=== PATIENT | male | born 1930 | race Caucasian/White ===

== ENCOUNTER 2016-09-27 | Outpatient (CLI) | payer MEDICARE, BC | END 2016-09-27 04:06 | disposition critical access hospital (66) | CPT/HCPCS: A0425; A0427 ==

== ENCOUNTER 2016-09-27 04:19 | Emergency (ER) | payer MEDICARE, BC ==
[2016-09-27] MEDS ORDERED: DEXTROSE GEL 37.5 GM TUBE PO ONE ×2 (04:24→04:26)
[2016-09-27] MEDS ORDERED: DEXTROSE 50% ABBOJECT 25 GM/50 ML SYRINGE ONE ×2 (04:30→06:10)
[2016-09-27] MEDS ORDERED: DEXTROSE 50% ABBOJECT 25 GM/50 ML SYRINGE IVP STA ×2 (04:32→06:06)
== END 2016-09-27 07:48 | disposition home or self-care (01) ==
DX: E11.649 Type 2 diabetes mellitus with hypoglycemia without coma (principal); Z79.4 Long term (current) use of insulin; I10 Essential (primary) hypertension; E78.00 Pure hypercholesterolemia, unspecified; Z86.73 Personal history of transient ischemic attack (TIA), and cerebral infarction without residual deficits; K21.9 Gastro-esophageal reflux disease without esophagitis; M19.90 Unspecified osteoarthritis, unspecified site; Z79.82 Long term (current) use of aspirin; F17.200 Nicotine dependence, unspecified, uncomplicated

== ENCOUNTER 2016-10-07 15:12 | Outpatient (CLI) | payer MEDICARE, BC | END 2016-10-07 15:13 | disposition home or self-care (01) | DX: R53.83 Other fatigue (principal); I10 Essential (primary) hypertension; E11.9 Type 2 diabetes mellitus without complications; N28.9 Disorder of kidney and ureter, unspecified ==

== ENCOUNTER 2017-02-03 12:24 | Outpatient (CLI) | payer MEDICARE, BC ==
[2017-02-03 19:26] LABS: CALCIUM 8.8 mg/dL (8.5-10.3); CREATININE 1.7 mg/dL (0.6-1.2); POTASSIUM 4.7 mmol/L (3.5-5.0)
[2017-02-03 20:00] LABS: HEMOGLOBIN A1C 1.14 g/dL
== END 2017-02-03 12:25 | disposition home or self-care (01) ==
LOC: LAB.WCP 12:24
PROVIDERS: ATTEND Family Medicine
DX: N28.9 Disorder of kidney and ureter, unspecified (principal); E11.9 Type 2 diabetes mellitus without complications
CPT/HCPCS: 36415; 80048; 83036

== ENCOUNTER 2017-05-19 12:59 | Outpatient (CLI) | payer MEDICARE, BC | END 2017-05-19 13:00 | disposition critical access hospital (66) | LOC: EMS 12:59 | PROVIDERS: ATTEND Surgery | DX: R41.82 Altered mental status, unspecified (principal) | CPT/HCPCS: A0425; A0429 ==

== ENCOUNTER 2017-05-19 13:13 | Observation (INO) | payer MEDICARE, BC ==
--- NOTE | 2017-05-19 13:39 | ED Physician Documentation ---
PD HPI FOCAL NEURO - Stated complaint Stated Complaint: ALOC - Chief complaint Chief Complaint: Neuro - History obtained from History obtained from: Patient, EMS - History of Present Illness Timing - onset: Other (86-year-old gentleman presents by ambulance for acute confusion, reportedly for the last 2 hours, although I am not sure how reliable this is. He initially complains of left shoulder pain when I ask him why he is here, he says that has been going on for weeks and had a negative x-ray. His difficulty with range of motion there. He denies any headache, when I specifically asked him if he feels confused he does say yes. Blood sugar on route was in the 100s. The is not immediately available for historical confirmation of the time of onset on arrival, I tried calling the home phone number and there was no answer.) - Additional information Additional information: Family did arrive shortly after the patient's arrival while he was in [place] and confirmed that at the very least he was confused at 5 AM this morning, so he is not a TPA candidate if this is a stroke. Review of Systems Unable to obtain: Confused Constitutional: denies: Fever, Chills Cardiac: denies: Chest pain / pressure, Palpitations Respiratory: denies: Dyspnea, Cough PD PAST MEDICAL HISTORY - Past Medical History Cardiovascular: Hypertension, High cholesterol Neuro: TIA Endocrine/Autoimmune: Type 2 diabetes GI: GERD Psych: None Musculoskeletal: Osteoarthritis, Chronic back pain - Past Surgical History Past Surgical History: Yes Ortho: Other HEENT: Cataracts - Present Medications Home Medications: Ambulatory Orders Medication Instructions Recorded Confirmed Aspirin [Aspir 81] 81 mg PO DAILY 02/14/15 09/27/16 Cholecalciferol (Vitamin D3) 2,000 unit PO DAILY 02/14/15 09/27/16 [Vitamin D-3] Esomeprazole Magnesium [Nexium 22.3 mg PO DAILY 02/14/15 09/27/16 24Hr] Ferrous Sulfate 325 mg PO BID 02/14/15 09/27/16 Sertraline HCl 50 mg PO QDBREAKFAST 02/14/15 09/27/16 Insulin Degludec [Tresiba 100 unit SQ 09/27/16 Flextouch U-100] Rosuvastatin Calcium [Crestor] 09/27/16 - Allergies Allergies/Adverse Reactions: Allergies Allergy/AdvReac Type Severity Reaction Status Date / Time Penicillins Allergy Mild Rash Verified 09/27/16 04:42 celecoxib [From Celebrex] Allergy Hives Verified 09/27/16 04:42 - Social History Does the pt smoke?: Yes Smoking Status: Light tobacco smoker Does the pt drink ETOH?: No Does the pt have substance abuse?: No - Immunizations Immunizations are current?: Yes - POLST Patient has POLST: No PD ED PE NORMAL - Vitals Vital signs reviewed: Yes - General General: Other (He is alert and cooperative, he is correct on the month and Year but not the date. He is able to state his name, and his address. When asked him how old he is he says he is 87, he is 86 though.) - HEENT HEENT: PERRL, EOMI - Neck Neck: Supple, no meningeal sign, No bony TTP - Cardiac Cardiac: RRR, No murmur - Respiratory Respiratory: No respiratory distress, Clear bilaterally - Abdomen Abdomen: Soft, Non tender - Derm Derm: Normal color, Warm and dry - Extremities Extremities: No edema, No calf tenderness / cord - Neuro Neuro: Other (He is unable to range the left shoulder due to shoulder pain, but has normal senior officer strength on the left,) - Psych Psych: Normal mood, Normal affect NIHSS - Time Time: 13:32 - Level of Consciousness Level of consciousness: (0) Alert, Keenly responsive LOC Questions: (0) Answers both Q's correct LOC Commands: (0) Performs both correctly - Gaze Best Gaze: (0) Normal - Visual Visual: (0) No loss - Facial Palsy Facial Palsy: (1) Minor paralysis (Right side) - Motor Arms (both separate) Motor Arm (right): (1) Drift (Very mild pronation of the right upper extremity) Motor Arm (left): (0) No drift (He actually cannot lift his arm off the bed because of shoulder pain but has normal senior officer strength on the left) - Motor Legs (both separate) Motor Leg (right): (1) Drift Motor Leg (left): (0) No drift - Limb Ataxia Limb Ataxia: (0) Absent - Sensory Sensory: (0) Normal - Best Language Best Language: (0) No aphasia - Dysarthria Dysarthria: (0) Normal - Extinction and Inattention (formally neg Extinction and inattention: (0) No abnormality - Total Score/Results Total Score/Result: 3 Results - Vitals Vitals: Vital Signs - 24 hr 05/19/17 13:21 Temperature 36.1 C L Heart Rate 87 Respiratory 16 Rate Blood Pressure 96/65 O2 Saturation 97 Oxygen O2 Source [] Room air O2 Source [] Room air O2 Source Room air - EKG (time done) 1415 Rate: Rate (enter#) (74) Rhythm: NSR [place]: Normal Intervals: Normal MO QRS: Normal Ischemia: Q waves (Anterior/inferior) Computer interpretation: Agree with computer - Labs Labs: Laboratory Tests 05/19/17 05/19/17 05/19/17 14:10 14:10 14:10 WBC 10.6 RBC 5.08 Hgb 15.2 Hct 45.1 MCV 88.8 MCH 29.8 MCHC 33.6 RDW 13.8 Plt Count 211 MPV 9.8 Neut # 6.2 Lymph # 2.9 Simpson # 0.6 Eos # 0.7 Baso # 0.1 Absolute Nucleated RBC 0.01 Nucleated RBC % 0.1 PT 11.4 INR 1.0 Sodium 135 Potassium 4.3 Chloride 98 L Carbon Dioxide 29 Anion Gap 8.0 BUN 22 H Creatinine 1.7 H Estimated GFR (MDRD) 38 L Glucose 140 H Calcium 9.1 Total Bilirubin 0.5 AST 19 ALT 13 Alkaline Phosphatase 101 Total Protein 6.8 Albumin 3.7 Globulin 3.1 Albumin/Globulin Ratio 1.2 Lipase 19 L - Rads (name of study) CT Head Radiology: EMP read contemporaneously (Atrophy without acute disease) PD MEDICAL DECISION MAKING - ED course ED course: On repeat examination after his CAT scan, he became much more alert and oriented and cogent, remember falling this morning and was now complaining of neck pain he does have mild high cervical spine tenderness, the pronator drift in the right arm and facial droop have disappeared. As such this is consistent with a TIA. I spoke with Dr. Camacho the hospitalist for admission at approximately 3:30 PM and she deferred to the nurse practitioner and I spoke with him, nurse dequan Barry, at about 4 PM. Departure - Departure Disposition: ED Place in Observation Clinical Impression: TIA (transient ischemic attack) Qualifiers: Transient cerebral ischemia type: unspecified Qualified Code(s): G45.9 - Transient cerebral ischemic attack, unspecified Fall Qualifiers: Encounter type: initial encounter Qualified Code(s): W19.XXXA - Unspecified fall, initial encounter Neck strain Qualifiers: Encounter type: initial encounter Qualified Code(s): S16.1XXA - Strain of muscle, fascia and tendon at neck level, initial encounter Condition: Stable
--- NOTE | 2017-05-19 14:15 | CT Preliminary Report ---
Exam: CT HEAD W/O STROKE PROTOCOL IMPRESSION: Generalized age-related cortical atrophic changes without evidence of acute intracranial abnormality. [facility] The call report notification system was initiated by Dr. Danette Rosales at 14:08 hrs on 05/19/17. The above findings were discussed with Dr Oseguera by Dr. Danette Rosales at 14:13 hrs on 05/19/17. SITE ID: [id number]
--- NOTE | 2017-05-19 14:20 | CT Report ---
EXAM: CT HEAD EXAM DATE: 05/19/2017 01:58 PM. CLINICAL HISTORY: Confusion. COMPARISON: 02/01/2016. TECHNIQUE: Multiaxial CT images were obtained from the foramen magnum to the vertex. IV contrast: Non e. Reformats: Coronal. In accordance with CT protocol optimization, one or more of the following dose reduction techniques w ere utilized for this exam: automated exposure control, adjustment of mA and/or KV based on patient s ize, or use of iterative reconstructive technique. FINDINGS: Parenchyma: No intraparenchymal hemorrhage. No evidence of mass, midline shift, or CT findings of acu te infarction. Decker-white differentiation is distinct. Extraaxial Spaces: Normal for age. No subdural or epidural collections identified. Ventricles: The ventricles and cortical sulci are enlarged, consistent with age-related tissue loss. Sinuses: Imaged paranasal sinuses, orbits, and mastoids show no significant abnormality. Bones: No evidence of fracture or calvarial defect. Other: Diffuse chronic microangiopathic white matter changes are evident. IMPRESSION: Generalized age-related cortical atrophic changes without evidence of acute intracranial abnormality. RAD[facility] The call report notification system was initiated by Dr. Danette Rosales at 14:08 hrs on 05/19/17. The above findings were discussed with Dr Hang Oseguera by Dr. Danette Rosales at 14:13 hrs on . Referring Provider Line: [phone] SITE ID: [id number]
[2017-05-19 14:36] LABS: BASOPHILS # (AUTO) 0.1 10^3/uL (0.0-0.1); BASOPHILS % (AUTO) 1.4 %; EOSINOPHILS # (AUTO) 0.7 10^3/uL (0.0-0.7); EOSINOPHILS % (AUTO) 6.3 %; HCT - HEMATOCRIT 45.1 % (42.0-52.0); HGB - HEMOGLOBIN 15.2 g/dL (14.0-18.0); LYMPHOCYTES # (AUTO) 2.9 10^3/uL (1.5-3.5); LYMPHOCYTES % (AUTO) 27.7 %; MEAN CORPUSCULAR HEMOGLOBIN 29.8 pg (27.0-31.0); MEAN CORPUSCULAR HGB CONC 33.6 g/dL (32.0-36.0); MEAN CORPUSCULAR VOLUME 88.8 fL (80.0-94.0); MEAN PLATELET VOLUME 9.8 fL (7.4-11.4); MONOCYTES # (AUTO) 0.6 10^3/uL (0.0-1.0); MONOCYTES % (AUTO) 5.9 %; NEUTROPHILS # (AUTO) 6.2 10^3/uL (1.5-6.6); NEUTROPHILS % (AUTO) 58.7 %; NUCLEATED RED BLOOD CELLS AUTO 0.1 /100WBC; RED BLOOD COUNT 5.08 10^6/uL (4.70-6.10); RED CELL DISTRIBUTION WIDTH 13.8 % (12.0-15.0); UNCORRECTED WHITE BLOOD COUNT 10.6 x10^3/uL; WHITE BLOOD COUNT 10.6 x10^3/uL (4.8-10.8)
[2017-05-19 14:45] LABS: PT - PROTHROMBIN TIME 11.4 secs (9.9-12.6)
[2017-05-19 14:52] LABS: ALBUMIN/GLOBULIN RATIO 1.2 (1.0-2.2); BILIRUBIN,TOTAL 0.5 mg/dL (0.2-1.0); CALCIUM 9.1 mg/dL (8.5-10.3); CREATININE 1.7 mg/dL (0.6-1.2); POTASSIUM 4.3 mmol/L (3.5-5.0); TOTAL PROTEIN 6.8 g/dL (6.7-8.2)
[2017-05-19] MEDS ORDERED: ASPIRIN CHEW 81 MG TABLET PO STA (14:52)
[2017-05-19] MEDS ORDERED: ASPIRIN CHEW 81 MG TABLET ONE (14:59)
[2017-05-19] MEDS ORDERED: SODIUM CHLORIDE FLUSH 0.9% 10 ML SYRINGE IVP PRN (16:43)
[2017-05-19] MEDS ORDERED: ONDANSETRON 4 MG/2 ML VIAL IVP PRN (16:43)
[2017-05-19] MEDS ORDERED: ACETAMINOPHEN 325 MG TABLET PO PRN (16:43)
--- NOTE | 2017-05-19 16:51 | CT Preliminary Report ---
Exam: CT CERVICAL SPINE W/O IMPRESSION: 1. No acute cervical spine fracture or listhesis. 2. Degenerative disk disease, as above. [facility] SITE ID: [id number]
--- NOTE | 2017-05-19 16:54 | CT Report ---
EXAM: CT CERVICAL SPINE WITHOUT CONTRAST DATE: 05/19/2017 04:07 PM HISTORY: Neck pain fall. COMPARISONS: None. TECHNIQUE: Thin-section axial images were acquired of the cervical spine without contrast. Post-proce ssing: Coronal and sagittal reformats. Other: None. In accordance with CT protocol optimization, one or more of the following dose reduction techniques w ere utilized for this exam: automated exposure control, adjustment of mA and/or KV based on patient s ize, or use of iterative reconstructive technique. FINDINGS: Alignment: Normal. No scoliosis or spondylolisthesis. Bones: No fracture or bone lesion. Interspace Levels/Facets: C1-C2: Unremarkable. C2-C3: Unremarkable. C3-C4: Unremarkable. C4-C5: Unremarkable. C5-C6: Moderate degenerative disk disease. C6-C7: Moderate degenerative disk disease. C7-T1: Moderate degenerative disk disease. Musculature: Normal. No fatty atrophy. Other: The paravertebral and prevertebral soft tissues are normal. The lung apices are clear. IMPRESSION: 1. No acute cervical spine fracture or listhesis. 2. Degenerative disk disease, as above. [facility] Referring Provider Line: [phone] SITE ID: [id number]
[2017-05-19 17:26] LABS: HEMOGLOBIN A1C 1.28 g/dL
--- NOTE | 2017-05-19 17:59 | HISTORY & PHYSICAL EXAMINATION ---
Chief Complaint - Chief Complaint Chief Complaint: TIA History of Present Illness - Admitted From Admitted From:: ER - History Obtained From History obtained from: pt - History of Present Illness HPI Comment/Other: This is a 86-year-old male with a past medical history significance for TIA two years ago, CKD, HTN, HLP, DM2, GERD, Osteoarthritis, Chronic back pain, who present ER for evaluation of TIA. Patient is a some poor historian, no patient's family member is at patient's bedside. patient state at this morning, he felt right side weakness, but no numbness, and with right side facial droop. Patient also report he had confusion at the morning. patient did not know what time he began to have these symptoms. Per ER report, these symptoms started at morning 5 am when patient's family came to the ER to report. Patient report he feel very good now, no any residual symptoms. Patient shows to me full ROM for his four extremities, no abnormal sensation, no facial droop or other focal neurological deficits now. Patient report he had a similar episode about two years ago. Patient also report after he became confusion, he had a fall and hit his neck at the ground. Patient denies pain at his neck, no limitation of ROM. Patient report he had a chronic pain on his left shoulder due to his hx of osteoarthritis. Patient denies chest pain, shortness of breath , fever, chill, abdominal pain, nausea, vomiting, diarrhea, dysuria, hematuria, headache, vision issue. Patient denies any other symptoms. CT and head and neck are unremarkable. lab test reveals BUN 22, creatinine 1.7 , pt is with hx of CKD. Patient is admitted for evaluation of TIA History - Past Medical History Cardiovascular: reports: Hypertension, High cholesterol Neuro: reports: TIA Endocrine/Autoimmune: reports: Type 2 diabetes GI: reports: GERD Psych: reports: None Musculoskeletal: reports: Osteoarthritis, Chronic back pain MRSA Hx?: No - Past Surgical History Ortho: reports: Other HEENT: reports: Cataracts - Family & Social History Family History Comment/Other: pt is retired and is living at [place] with his family. Living arrangement: At home Living Situation: With spouse/s.o., With family - Substance History Use: Uses substance without health or social issues: NONE Abuse: Recurrent use of substance despite neg consequences: NONE - POLST Patient has POLST: No POLST Status: Full Code Meds/Allgy - Home Medications Home Medications: Ambulatory Orders Medication Instructions Recorded Confirmed Aspirin [Aspir 81] 81 mg PO DAILY 02/14/15 05/20/17 Cholecalciferol (Vitamin D3) 2,000 unit PO DAILY 02/14/15 05/20/17 [Vitamin D-3] Ferrous Sulfate 325 mg PO BID 02/14/15 09/27/16 Sertraline HCl 50 mg PO QDBREAKFAST 02/14/15 09/27/16 Insulin Degludec [Tresiba 100 unit SQ 09/27/16 Flextouch U-100] Rosuvastatin Calcium [Crestor] 09/27/16 Esomeprazole Magnesium [Nexium 20 mg PO DAILY 05/20/17 05/20/17 24Hr] - Allergies Allergies/Adverse Reactions: Allergies Allergy/AdvReac Type Severity Reaction Status Date / Time Penicillins Allergy Mild Rash Verified 09/27/16 04:42 celecoxib [From Celebrex] Allergy Hives Verified 09/27/16 04:42 acetaminophen [From Tylenol] AdvReac Unknown Verified 05/20/17 06:00 Review of Systems - Constitutional Constitutional: denies: Fatigue, Fever, Chills, Malaise, Weakness, Poor appetite , Diaphoresis, Night sweats, Weight gain, Weight loss - Eyes Eyes: denies: Pain, Irritation, Amaurosis, Blurred vision, Spots in vision, Field loss, Vision loss, Dipolpia - Ears, Nose & Throat Ears, Nose & Throat: denies: Ear pain, Hearing loss, Hearing aids, Tinnitus, Vertigo, Nasal discharge, Nosebleeds, Sore throat, Mouth lesions, Bleeding gums - Cardiovascular Cariovascular: denies: Irregular heart rate, Palpitations, Chest pain, Edema, Lightheadedness, Syncope, Exertional dyspnea - Respiratory Respiratory: denies: Cough, Sputum production, Wheezing, Snoring, Hemoptysis, Orthopnea, SOB at rest, SOB with exertion - Gastrointestinal Gastrointestinal: denies: Abdominal pain, Abdominal distention, Constipation, Diarrhea, Change in bowel habits, Rectal bleeding, Black stools, Bloody stools, Nausea, Vomiting, Jayjay blood emesis, Coffee grounds emesis, Bloating, Poor appetite - Genitourinary Genitourinary: denies: Dysuria, Frequency, Urgency, Hematuria, Incontinence, Flank pain, Nocturia - Musculoskeletal Musculoskeletal: denies: Muscle pain, Back pain, Muscle aches, Stiffness, Limited range of motion, Muscle weakness, Gout, Joint pain, Joint swelling - Integumentary Integumentary: denies: Rash, Pruritis, Lesions, Dryness, Acne, Pigment changes - Neurological Neurological: denies: General weakness, Focal weakness, Headache, Dizziness, Numbness, Memory problems, Pre-existing deficit, Abnormal gait, Seizures, Incoordination, Slurred speech - Psychiatric Psychiatric: denies: Depression, Anxiety, Suicidal, Delusions, Hallucinations, Homicidal - Endocrine Endocrine: denies: Polyuria, Polydypsia, Polyphagia, Intolerance to cold, Intolerance to heat - Hematologic/Lymphatic Hematologic/Lymphatic: denies: Anemia, Bruising, Petechiae, Blood clots, Lymphadenopathy, Bleeding tendencies, Recurrent infections Exam - Vital Signs Reviewed Vital Signs: Yes Vital Signs: Vital Signs x48h Temp Pulse Resp BP Pulse Ox 05/19/17 17:42 36.3 C L 78 18 185/81 H 97 - Physical Exam General Appearance: positive: No acute distress, Alert. negative: Lethargic Eyes Bilateral: positive: Normal inspection, PERRL, EOMI, No lid inflammation, Conjunctivae nml ENT: positive: ENT inspection nml, Pharynx nml, No signs of dehydration. negative: Purulent nasal drainage, Pharyngeal erythema, Oral lesions Neck: positive: Nml inspection, Thyroid nml, No JVD, Trachea midline. negative : Thyromegaly, Lymphadenopathy (R), Lymphadenopathy (L), Stiff neck, Carotid bruit, Swelling/bruising, Tracheal deviation Respiratory: positive: Chest non-tender, No respiratory distress, Breath sounds nml. negative: Wheezes, Rales, Rhonchi Cardiovascular: positive: Regular rate & rhythm, No murmur, No gallop. negative : Irregularly irregular, Extrasystoles, Tachycardia, Bradycardia, Systolic murmur, Diastolic murmur Peripheral Pulses: positive: 2+ Abdomen: positive: Non-tender, No organomegaly, Nml bowel sounds, No distention. negative: Tenderness, Guarding, Rebound Back: positive: Nml inspection. negative: CVA tenderness (R), CVA tenderness (L ) Skin: positive: Color nml, No rash, Warm, Dry. negative: Cyanosis, Diaphoresis , Pallor, Skin rash Extremities: positive: Non-tender, Full ROM, Nml appearance. negative: Calf tenderness, Joint swelling, Antoinette's sign/cords Neurologic/Psychiatric: positive: Motor nml, Sensation nml, Mood/affect nml, Disoriented to time. negative: Disoriented to person, Disoriented to place, Sensory loss, Facial droop, Slurred/abnml speech, Depressed mood/affect Conclusion/Plan - Problem List (1) TIA (transient ischemic attack) Conclusion/Plan: pt has hx of TIA, CT of head and neck unremarkable. MRI of brain ECHO US of Carotid Lipid panel neurological check tele, vital monitor pt already had Aspirin 325 mg at ER continue Aspirin 81 mg daily lab monitor Qualifiers: Transient cerebral ischemia type: unspecified Qualified Code(s): G45.9 - Transient cerebral ischemic attack, unspecified (2) DM2 (diabetes mellitus, type 2) Conclusion/Plan: stable glucose level, slide scale, check A1S (3) CKD (chronic kidney disease) Conclusion/Plan: unchanged CKD status compared with previous study mild hydration continue lab, vital monitor (4) HTN (hypertension) Conclusion/Plan: stable, no home BP meds, tele, vital closely monitor (5) Hyperlipemia Conclusion/Plan: will do lipid panel study resume home meds (6) Fall Conclusion/Plan: CT of neck unremarkable no other pain reported fall precaution neurological check Qualifiers: Encounter type: initial encounter Qualified Code(s): W19.XXXA - Unspecified fall, initial encounter (7) GERD (gastroesophageal reflux disease) Conclusion/Plan: stable, PEPCID and for GI ulcer prophylaxis - Lab Results Fish Bones: 05/20/17 05:17 05/20/17 05:17 Issues/Core Measures - Anticipated LOS Anticipated Stay Length: Less than 2 midnights (less than two night expected)
[2017-05-19] MEDS: INSULIN ASPART 300 UNIT/3 ML PEN SUBQ SCH ×2 (18:20→21:20)
[2017-05-19] MEDS: SODIUM CHLORIDE 0.9% 1,000 ML IV SCH (18:49)
[2017-05-19] MEDS: SODIUM CHLORIDE FLUSH 0.9% 10 ML SYRINGE IVP SCH (21:14)
[2017-05-19] MEDS: HEPARIN 5,000 UNIT/ML VIAL SUBQ SCH (21:20)
--- NOTE | 2017-05-20 00:16 | Ultrasound Preliminary Report ---
Exam: US CAROTID DOPPLER COMPLETE IMPRESSION: Less than 50% stenosis of the internal carotid arteries bilaterally. Moderate to severe c alcified plaque at the carotid bulb region. Validated velocity measurements with angiographic measurements and velocity criteria are extrapolated from diameter data as defined by the Society of Radiologists in Ultrasound Consensus Conference Radi ology 2003; 229;340-346. RADIA SITE ID: [id number]
--- NOTE | 2017-05-20 00:28 | Ultrasound Report ---
EXAM: CAROTID DOPPLER ULTRASOUND EXAM DATE: 05/19/2017 11:13 PM. CLINICAL HISTORY: TIA, confusion for 2 hours today. COMPARISON: None. TECHNIQUE: Real-time sonographic vascular imaging was performed by the erosion control specialist through the [employer] arterial system with a linear transducer utilizing color-flow, Doppler flow and spectral analysis. Multiple operations representative static images were saved for review. FINDINGS: There is moderate to severe calcified plaque within the carotid bulb region bilaterally. Resultant sh adowing makes it difficult to assess these portions. There is antegrade flow within the vertebral art eries bilaterally. Right: RCCA Prox: PSV 50.9 cm/sec. RCCA Dist: PSV 58.3 cm/sec, EDV 8.4 cm/sec. RECA: PSV 70.0 cm/sec. R Bulb: PSV 63.5 cm/sec, EDV 7.5 cm/sec, ICA/CCA ratio 1.08. ALESHIA Prox: PSV 60.2 cm/sec, EDV 10.7 cm/sec, ICA/CCA ratio 1.03. ALESHIA Mid: PSV 53.7 cm/sec, EDV 11.7 cm/sec, ICA/CCA ratio 0.9. ALESHIA Dist: PSV 69.5 cm/sec, EDV 14.0 cm/sec, ICA/CCA ratio 1.2. RVA: PSV 44.3 cm/sec. RVA flow direction: Antegrade. Left: LCCA Prox: PSV 63.5 cm/sec. LCCA Dist: PSV 60.7 cm/sec, EDV 7.0 cm/sec. LECA: PSV 104.6 cm/sec. L Bulb: PSV 43.9 cm/sec, EDV 8.9 cm/sec, ICA/CCA ratio 0.7. LICA Prox: PSV 76.5 cm/sec, EDV 23.6 cm/sec, ICA/CCA ratio 1.3. LICA Mid: PSV 84.7 cm/sec, EDV 26.7 cm/sec, ICA/CCA ratio 1.4. LICA Dist: PSV 67.3 cm/sec, EDV 20.5 cm/sec, ICA/CCA ratio 1.1 LVA: PSV 44.2 cm/sec. LVA flow direction: Antegrade. Other: None. IMPRESSION: Less than 50% stenosis of the internal carotid arteries bilaterally. Moderate to severe calcified gin que at the carotid bulb region. Validated velocity measurements with angiographic measurements and velocity criteria are extrapolated from diameter data as defined by the Society of Radiologists in Ultrasound Consensus Conference Radi ology 2003; 229;340-346. RADIA Referring Provider Line: [phone] SITE ID: [id number]
[2017-05-20] MEDS ORDERED: IBUPROFEN 400 MG TABLET PO SCH (00:53)
[2017-05-20] MEDS: SODIUM CHLORIDE FLUSH 0.9% 10 ML SYRINGE IVP SCH ×2 (05:14→13:15)
[2017-05-20 06:02] LABS: BASOPHILS # (AUTO) 0.1 10^3/uL (0.0-0.1); BASOPHILS % (AUTO) 0.6 %; EOSINOPHILS # (AUTO) 0.8 10^3/uL (0.0-0.7); EOSINOPHILS % (AUTO) 7.5 %; HCT - HEMATOCRIT 43.8 % (42.0-52.0); HGB - HEMOGLOBIN 14.5 g/dL (14.0-18.0); LYMPHOCYTES # (AUTO) 3.2 10^3/uL (1.5-3.5); LYMPHOCYTES % (AUTO) 31.3 %; MEAN CORPUSCULAR HEMOGLOBIN 29.9 pg (27.0-31.0); MEAN CORPUSCULAR HGB CONC 33.1 g/dL (32.0-36.0); MEAN CORPUSCULAR VOLUME 90.3 fL (80.0-94.0); MONOCYTES # (AUTO) 0.8 10^3/uL (0.0-1.0); MONOCYTES % (AUTO) 7.5 %; NEUTROPHILS # (AUTO) 5.5 10^3/uL (1.5-6.6); NEUTROPHILS % (AUTO) 53.1 %; NUCLEATED RED BLOOD CELLS AUTO 0.1 /100WBC; RED BLOOD COUNT 4.85 10^6/uL (4.70-6.10); RED CELL DISTRIBUTION WIDTH 13.7 % (12.0-15.0); UNCORRECTED WHITE BLOOD COUNT 10.3 x10^3/uL; WHITE BLOOD COUNT 10.3 x10^3/uL (4.8-10.8)
[2017-05-20 06:21] LABS: ALBUMIN/GLOBULIN RATIO 1.2 (1.0-2.2); BILIRUBIN,TOTAL 0.5 mg/dL (0.2-1.0); BUN - BLOOD UREA NITROGEN 21 mg/dL (6-20); CALCIUM 8.7 mg/dL (8.5-10.3); CARBON DIOXIDE - CO2 26 mmol/L (21-32); CHLORIDE 101 mmol/L (101-111); CHOL/HDL RATIO 3.6 (<5.0); CHOLESTEROL 107 mg/dL; CREATININE 1.6 mg/dL (0.6-1.2); GFR - MDRD 41 (>89); GLUCOSE 130 mg/dL (70-100); HDL CHOLESTEROL 30 mg/dL; LDL/HDL RATIO 1.9 (<3.6); MAGNESIUM 1.8 mg/dL (1.7-2.8); POTASSIUM 4.3 mmol/L (3.5-5.0); SODIUM 137 mmol/L (135-145); TOTAL PROTEIN 5.8 g/dL (6.7-8.2); TRIGLYCERIDES 102 mg/dL; VLDL CHOLESTEROL 20 mg/dL
[2017-05-20] MEDS: INSULIN ASPART 300 UNIT/3 ML PEN SUBQ SCH ×3 (08:54→17:02)
[2017-05-20] MEDS ORDERED: ASPIRIN EC 81 MG TABLET PO SCH (09:00)
[2017-05-20] MEDS ORDERED: POLYETHYLENE GLYCOL 3350 17 GM PACKET PO SCH (09:00)
[2017-05-20] MEDS ORDERED: FAMOTIDINE 20 MG TABLET PO SCH (09:00)
[2017-05-20] MEDS: SODIUM CHLORIDE 0.9% 1,000 ML IV SCH (09:08)
[2017-05-20] MEDS: HEPARIN 5,000 UNIT/ML VIAL SUBQ SCH (09:08)
--- NOTE | 2017-05-20 12:55 | MRI Preliminary Report ---
Exam: MRI BRAIN W/O IMPRESSION: 1. No acute intracranial abnormality. No acute infarct, mass, or hemorrhage. 2. Moderate confluent white matter T2 and FLAIR bright signal seen in the cerebral hemispheres and to a lesser extent brainstem. This can be seen secondary to chronic hypertensive encephalopathy or diff use small vessel ischemic change. -Cystic foci are noted in the left centrum semiovale consistent with old lacunar infarcts. SITE ID: [id number]
--- NOTE | 2017-05-20 13:12 | MRI Report ---
EXAM: MRI BRAIN WITHOUT CONTRAST EXAM DATE: 05/20/2017 12:10 PM. CLINICAL HISTORY: TIA. Episode of falling as well as difficulty understanding other people yesterday. COMPARISON: CT scan of the head 05/19/2017. TECHNIQUE: Multiplanar, multisequence T1-weighted and fluid-sensitive MR sequences of the brain were performed. Sequences optimized for routine evaluation. Other: None. IV Contrast: None. FINDINGS: Brain Volume: age-advanced volume loss is present. Parenchyma/Dura: No mass, acute infarct or hemorrhage. Moderately extensive confluent white matter T2 and FLAIR bright signal is seen throughout the cerebral hemispheres. Several small cystic foci are n oted in the left centrum semiovale. Mild patchy T2 and FLAIR bright signal is seen in the brainstem. There is a punctate focus of subcortical white matter hypointense magnetic susceptibility seen in the high right posterior frontal lobe. This is consistent with petechial microhemorrhage. No parenchymal hematoma. Ventricles/Cisterns: No hydrocephalus. No abnormal extra-axial fluid collection or hemorrhage. Promin ence to the ventricular system and overlying cortical sulci is noted. Orbits: Unremarkable. Note is made of bilateral lens removal. Sella turcica: Unremarkable. IAC: Unremarkable. Vasculature: Normal signal flow void is seen in the major arterial structures at the skull base. Sinuses: No acute appearing sinus disease. Bones: No focal pathologic appearing marrow signal changes. Other: None. IMPRESSION: 1. No acute intracranial abnormality. No acute infarct, mass, or hemorrhage. 2. Moderate confluent white matter T2 and FLAIR bright signal seen in the cerebral hemispheres and to a lesser extent brainstem. This can be seen secondary to chronic hypertensive encephalopathy or diff use small vessel ischemic change. -Cystic foci are noted in the left centrum semiovale consistent with old lacunar infarcts. Referring Provider Line: [phone] SITE ID: [id number]
--- NOTE | 2017-05-20 13:34 | Discharge Plan ---
Discharge Plan Disposition: 01 Home, Self Care Condition: Stable Diet: Diabetic Activity Restrictions: Activity as Tolerated Shower Restrictions: No Weight Bearing: Full Weight Additional Instructions or Follow Up instructions: May see PCP in one week Follow-Up Care: [facility] - Medical, [facility] - Diabetes Ed No Smoking: If you smoke, Please STOP! Call for help. Follow-up with: Levi Arnold MD [Primary Care Provider] -
--- NOTE | 2017-05-20 15:22 | DISCHARGE SUMMARY ---
Discharge Summary Admit Date: 05/19/17 Discharge Date: 05/20/17 Discharging Provider: MORALES Primary Care Provider: Levi Ferro Code Status: Attempt Resuscitation Condition at Discharge: Stable Discharge Disposition: 01 Home, Self Care Discharge Facility Name: home - DIAGNOSES Admission Diagnoses: (1) TIA (transient ischemic attack) (2) DM2 (diabetes mellitus, type 2) (3) CKD (chronic kidney disease) (4) HTN (hypertension) (5) Hyperlipemia (6) Fall (7) GERD (gastroesophageal reflux disease) Discharge Diagnoses with Status of Each Condition: (1) TIA (transient ischemic attack) resolved, no focal neurological deficit all workup of TIA are unremarkable (2) DM2 (diabetes mellitus, type 2) stable, pt is advised medical compliance for medication (3) CKD (chronic kidney disease) stable (4) HTN (hypertension) stable (5) Hyperlipemia stable (6) Fall no injury, advise to pt for the prevention of fall (7) GERD (gastroesophageal reflux disease) stable - HPI History of Present Illness: please refer from my HPI on 05/19/17 - HOSPITAL COURSE Hospital Course: pt present TIA symptoms initially with fall and confusion. all pt's symptoms run away in the medical floor. Pt is clear mind, alert and oriented in the medical floor as well. There is no focal neurological deficit. Pt's CT of head and neck are unremarkable. MRI of head is without acute finding. US of carotid and ECHO are unremarkable. Lipid panel reveal pt's LDL is 57. pt request to be D /C home. - ALLERGIES Allergies/Adverse Reactions: Allergies Allergy/AdvReac Type Severity Reaction Status Date / Time Penicillins Allergy Mild Rash Verified 09/27/16 04:42 celecoxib [From Celebrex] Allergy Hives Verified 09/27/16 04:42 acetaminophen [From Tylenol] AdvReac Unknown Verified 05/20/17 06:00 - MEDICATIONS Home Medications: Ambulatory Orders Medication Instructions Recorded Confirmed Aspirin [Aspir 81] 81 mg PO DAILY 02/14/15 05/20/17 Cholecalciferol (Vitamin D3) 2,000 unit PO DAILY 02/14/15 05/20/17 [Vitamin D3] Ferrous Sulfate 325 mg PO BID 02/14/15 05/20/17 Sertraline HCl 50 mg PO QDBREAKFAST 02/14/15 05/20/17 Insulin Degludec [Tresiba 5 unit SQ DAILY 09/27/16 05/20/17 Flextouch U-100] Rosuvastatin Calcium [Crestor] 5 mg PO DAILY PM 09/27/16 05/20/17 Esomeprazole Magnesium [Nexium 20 mg PO DAILY 05/20/17 05/20/17 24Hr] - PHYSICAL EXAM AT DISCHARGE General Appearance: positive: No acute distress, Alert. negative: Lethargic Eyes Bilateral: positive: Normal inspection, PERRL, EOMI, No lid inflammation, Conjunctivae nml ENT: positive: ENT inspection nml, Pharynx nml, No signs of dehydration. negative: Purulent nasal drainage, Pharyngeal erythema, Oral lesions Neck: positive: Nml inspection, Thyroid nml, Trachea midline. negative: Thyromegaly, Lymphadenopathy (R), Lymphadenopathy (L), Stiff neck, Carotid bruit , Swelling/bruising, Tracheal deviation Respiratory: positive: Chest non-tender, No respiratory distress, Breath sounds nml. negative: Wheezes, Rales, Rhonchi Cardiovascular: positive: Regular rate & rhythm, No murmur, No gallop. negative : Irregularly irregular, Extrasystoles, Tachycardia, Bradycardia, Systolic murmur, Diastolic murmur Peripheral Pulses: negative: 2+ Abdomen: positive: Non-tender, Nml bowel sounds, No distention. negative: Tenderness, Guarding, Rebound Back: positive: Nml inspection. negative: CVA tenderness (R), CVA tenderness (L ) Skin: positive: Color nml, No rash, Warm, Dry. negative: Cyanosis, Diaphoresis , Pallor, Skin rash Extremities: positive: Non-tender, Full ROM, Nml appearance. negative: Calf tenderness, Antoinette's sign/cords Neurologic/Psychiatric: positive: Oriented x3, Motor nml, Sensation nml, Mood/ affect nml. negative: Sensory loss, Facial droop, Slurred/abnml speech, Depressed mood/affect - LABS Result Diagrams: 05/20/17 05:17 05/20/17 05:17 - FOLLOW UP Follow Up: pt is advised to see PCP in one week, and see neurologist in two or three weeks. Pt state he understand and will follow up the advise.
[2017-05-20 16:01] VITALS: BP 134/89
[2017-05-20] MEDS ORDERED: ATORVASTATIN 10 MG TABLET PO SCH (21:00)
[2017-05-21] MEDS ORDERED: CHOLECALCIFEROL 1,000 UNIT TABLET PO SCH (09:00)
== END 2017-05-20 17:00 | disposition home or self-care (01) ==
LOC: EDUNIT# → ED 13:13 → OBS 16:43
PROVIDERS: ADMIT Nurse Practitioner Gerontology; ATTEND Nurse Practitioner Gerontology
DX: G45.9 Transient cerebral ischemic attack, unspecified (principal); S16.1XXA Strain of muscle, fascia and tendon at neck level, initial encounter; W19.XXXA Unspecified fall, initial encounter; M19.012 Primary osteoarthritis, left shoulder; E11.22 Type 2 diabetes mellitus with diabetic chronic kidney disease; I12.9 Hypertensive chronic kidney disease with stage 1 through stage 4 chronic kidney disease, or unspecified chronic kidney disease; N18.9 Chronic kidney disease, unspecified; E78.5 Hyperlipidemia, unspecified; K21.9 Gastro-esophageal reflux disease without esophagitis; F17.200 Nicotine dependence, unspecified, uncomplicated; G89.29 Other chronic pain; Z86.73 Personal history of transient ischemic attack (TIA), and cerebral infarction without residual deficits; Z79.82 Long term (current) use of aspirin; Z79.4 Long term (current) use of insulin
CPT/HCPCS: 36415; 70450; 70551; 72125; 80053; 80061; 83036; 83690; 83735; 85025; 85610; 93005; 93306; 93880; 96360; 96361; 96372; 99284; 99285; A9270; G0378

== ENCOUNTER 2017-09-10 08:00 | Outpatient (CLI) | payer MEDICARE, BC ==
[2017-09-10 19:07] LABS: CALCIUM 8.6 mg/dL (8.5-10.3); CREATININE 1.4 mg/dL (0.6-1.2)
[2017-09-10 19:33] LABS: HB2 TOTAL 16.5 g/dL; HEMOGLOBIN A1C 1.34 g/dL; HEMOGLOBIN A1C % 9.6 % (4.6-6.2)
== END 2017-09-10 08:01 | disposition home or self-care (01) ==
LOC: LAB.WCP 08:00
PROVIDERS: ATTEND Family Medicine
DX: N28.9 Disorder of kidney and ureter, unspecified (principal); E11.9 Type 2 diabetes mellitus without complications
CPT/HCPCS: 36415; 80048; 83036

== ENCOUNTER 2017-09-14 16:42 | Emergency (ER) | payer MEDICARE, BC ==
--- NOTE | 2017-09-14 18:08 | ED Physician Documentation ---
PD HPI HEAD INJURY - Stated complaint Stated Complaint: GLF/FACE LAC - Chief complaint Chief Complaint: General - History obtained from History obtained from: Patient, Family (spouse says he has had problems with balance and does not like to use his walker, so had a couple falls yesterday. then again today, with abrasion forehead and pain in right shoulder. No LOC. He could not get back up easily so had to crawl to the stairway to work his way back up to standing.) - History of Present Illness Mechanism of head injury: Fell Where head injury occurred: Home Timing - onset: Today Location of injury: Right, Front Quality of pain: Aching Associated symptoms: No: LOC, AMS, Nausea / vomiting Symptoms worsen with: Palpation Contributing factors: No: Anticoagulated (just aspirin) Similar symptoms before: No diagnosis (balance problems and has walker, but falls intermittently when doesn't use it.) Recently seen: Not recently seen Review of Systems Constitutional: denies: Fever, Chills Nose: denies: Rhinorrhea / runny nose, Congestion Throat: denies: Sore throat Cardiac: denies: Chest pain / pressure, Palpitations Respiratory: denies: Dyspnea, Cough GI: denies: Nausea, Vomiting, Diarrhea, Bloody / black stool Musculoskeletal: reports: Other (right shoulder hurting for ROM and lifting about about 60 degrees.). denies: Neck pain, Back pain Neurologic: denies: Focal weakness, Confused, Altered mental status PD PAST MEDICAL HISTORY - Past Medical History Cardiovascular: Hypertension, High cholesterol Respiratory: None Neuro: TIA Endocrine/Autoimmune: Type 2 diabetes GI: GERD : None HEENT: Glaucoma Psych: None Musculoskeletal: Osteoarthritis, Chronic back pain Derm: None - Past Surgical History Past Surgical History: Yes Ortho: Other HEENT: Cataracts - Present Medications Home Medications: Ambulatory Orders Medication Instructions Recorded Confirmed Aspirin [Aspir 81] 81 mg PO DAILY 02/14/15 05/20/17 Cholecalciferol (Vitamin D3) 2,000 unit PO DAILY 02/14/15 05/20/17 [Vitamin D3] Ferrous Sulfate 325 mg PO BID 02/14/15 05/20/17 Sertraline HCl 50 mg PO QDBREAKFAST 02/14/15 05/20/17 Insulin Degludec [Tresiba 5 unit SQ DAILY 09/27/16 05/20/17 Flextouch U-100] Rosuvastatin Calcium [Crestor] 5 mg PO DAILY PM 09/27/16 05/20/17 Esomeprazole Magnesium [Nexium 20 mg PO DAILY 05/20/17 05/20/17 24Hr] - Allergies Allergies/Adverse Reactions: Allergies Allergy/AdvReac Type Severity Reaction Status Date / Time Penicillins Allergy Mild Rash Verified 09/27/16 04:42 celecoxib [From Celebrex] Allergy Hives Verified 09/27/16 04:42 acetaminophen [From Tylenol] AdvReac Unknown Verified 05/20/17 06:00 - Social History Does the pt smoke?: Yes Smoking Status: Former smoker Does the pt drink ETOH?: No Does the pt have substance abuse?: No - Immunizations Immunizations are current?: Yes - POLST Patient has POLST: No POLST Status: Full Code PD ED PE NORMAL - Vitals Vital signs reviewed: Yes - General General: Alert and oriented X 3, No acute distress, Well developed/nourished - HEENT HEENT: PERRL, Pharynx benign, Other (abrasion right forehead. ) - Neck Neck: Supple, no meningeal sign, No bony TTP (but does have some mild pain with ROM. ), No adenopathy - Cardiac Cardiac: RRR, No murmur - Respiratory Respiratory: Clear bilaterally - Abdomen Abdomen: Soft, Non tender - Extremities Extremities: Other (right shoulder tender laterally. Guarded ROM for abduction. ROtational not too bad. ) - Neuro Neuro: Alert and oriented X 3, furnace roaster 2-12 intact, No motor deficit, No sensory deficit, Normal speech Eye Opening: Spontaneous Motor: Obeys Commands Verbal: Oriented GCS Score: 15 - Psych Psych: Normal mood Results - Vitals Vitals: Oxygen O2 Source [With Activity] Room air O2 Source [Without Activity] Room air O2 Source Room air - Labs Labs: Laboratory Tests 09/14/17 09/14/17 18:45 18:45 WBC 11.0 H RBC 4.88 Hgb 14.8 Hct 43.9 MCV 89.9 MCH 30.2 MCHC 33.6 RDW 14.0 Plt Count 212 MPV 9.0 Neut # 6.8 H Lymph # 2.4 Meagher # 0.9 Eos # 0.6 Baso # 0.2 H Absolute Nucleated RBC 0.01 Nucleated RBC % 0.1 Sodium 136 Potassium 4.4 Chloride 99 L Carbon Dioxide 29 Anion Gap 8.0 BUN 23 H Creatinine 1.5 H Estimated GFR (MDRD) 44 L Glucose 126 H Calcium 8.8 Magnesium 2.1 Total Bilirubin 0.3 AST 53 H ALT 24 Alkaline Phosphatase 92 Total Protein 6.3 L Albumin 3.5 Globulin 2.8 Albumin/Globulin Ratio 1.3 Lipase 11 L - Rads (name of study) head and neck T Radiology: Prelim report reviewed (no acute process, no fractures) right shoulder Radiology: Prelim report reviewed (no fractures) PD MEDICAL DECISION MAKING - ED course Complexity details: reviewed results, considered differential, d/w patient, d/w family Departure - Departure Disposition: 01 Home, Self Care Clinical Impression: Fall from slip, trip, or stumble Qualifiers: Encounter type: initial encounter Qualified Code(s): W01.0XXA - Fall on same level from slipping, tripping and stumbling without subsequent striking against object, initial encounter Facial contusion Qualifiers: Encounter type: initial encounter Qualified Code(s): S00.83XA - Contusion of other part of head, initial encounter Shoulder sprain Qualifiers: Encounter type: initial encounter Shoulder sprain type: unspecified sprain Laterality: right Qualified Code(s): S43.401A - Unspecified sprain of right shoulder joint, initial encounter Condition: Stable Record reviewed to determine appropriate education?: Yes Instructions: ED Contusion Face, ED Sprain Shoulder Follow-Up: Levi Arnold MD [Primary Care Provider] - Comments: Allow the Steri-Strips to fall off the facial cut after several days. Tylenol every 4 hours if needed for pains. Progressive range of motion of the shoulders as they improve. Follow-up with your primary care in 3 or 4 days for follow-up of this. Discharge Date/Time: 09/14/17 21:27
[2017-09-14] MEDS ORDERED: ACETAMINOPHEN 325 MG TABLET PO STA (18:27)
[2017-09-14 18:55] LABS: BASOPHILS # (AUTO) 0.2 10^3/uL (0.0-0.1); BASOPHILS % (AUTO) 1.4 %; EOSINOPHILS # (AUTO) 0.6 10^3/uL (0.0-0.7); EOSINOPHILS % (AUTO) 5.5 %; HGB - HEMOGLOBIN 14.8 g/dL (14.0-18.0); LYMPHOCYTES # (AUTO) 2.4 10^3/uL (1.5-3.5); LYMPHOCYTES % (AUTO) 22.3 %; MEAN CORPUSCULAR HEMOGLOBIN 30.2 pg (27.0-31.0); MEAN CORPUSCULAR HGB CONC 33.6 g/dL (32.0-36.0); MEAN CORPUSCULAR VOLUME 89.9 fL (80.0-94.0); MONOCYTES # (AUTO) 0.9 10^3/uL (0.0-1.0); MONOCYTES % (AUTO) 8.5 %; NEUTROPHILS # (AUTO) 6.8 10^3/uL (1.5-6.6); NEUTROPHILS % (AUTO) 62.3 %; PLT - PLATELET COUNT 212 10^3/uL (130-450); RED BLOOD COUNT 4.88 10^6/uL (4.70-6.10)
[2017-09-14 19:04] LABS: ALBUMIN 3.5 g/dL (3.2-5.5); ALBUMIN/GLOBULIN RATIO 1.3 (1.0-2.2); BILIRUBIN,TOTAL 0.3 mg/dL (0.2-1.0); CALCIUM 8.8 mg/dL (8.5-10.3); CREATININE 1.5 mg/dL (0.6-1.2); MAGNESIUM 2.1 mg/dL (1.7-2.8); TOTAL PROTEIN 6.3 g/dL (6.7-8.2)
--- NOTE | 2017-09-14 20:01 | CT Preliminary Report ---
Exam: CT HEAD W/O IMPRESSION: Generalized age-related cortical atrophic changes without evidence of acute intracranial abnormality. [facility] SITE ID: [id number]
--- NOTE | 2017-09-14 20:05 | CT Preliminary Report ---
Exam: CT FACIAL BONES W/O IMPRESSION: 1. Right preseptal and periorbital edema. 2. No acute bony abnormality. [facility] SITE ID: [id number]
--- NOTE | 2017-09-14 20:05 | CT Report ---
EXAM: CT HEAD EXAM DATE: 09/14/2017 07:19 PM. CLINICAL HISTORY: Multiple falls over the last 2 weeks with facial and head trauma. Loss of conscious ness. Pain. COMPARISON: Head MRI 05/20/2017. Head CT 05/19/2017. TECHNIQUE: Multiaxial CT images were obtained from the foramen magnum to the vertex. Reformats: Coron al. IV contrast: None. In accordance with CT protocol optimization, one or more of the following dose reduction techniques w ere utilized for this exam: automated exposure control, adjustment of mA and/or KV based on patient s ize, or use of iterative reconstructive technique. FINDINGS: Parenchyma: No intraparenchymal hemorrhage. No evidence of mass, midline shift, or CT findings of acu te infarction. Decker-white differentiation is distinct. Diffuse chronic microangiopathic white matter changes are evident. Extraaxial Spaces: Normal for age. No subdural or epidural collections identified. Ventricles: The ventricles and cortical sulci are enlarged, consistent with age-related tissue loss. Sinuses and orbits: Imaged paranasal sinuses, orbits, and mastoids show no significant abnormality. Bones: No evidence of fracture or calvarial defect. Other: None. IMPRESSION: Generalized age-related cortical atrophic changes without evidence of acute intracranial abnormality. [facility] Referring Provider Line: [phone] SITE ID: [id number]
--- NOTE | 2017-09-14 20:07 | XRAY Preliminary Report ---
Exam: XR SHOULDER 3 VIEW RT IMPRESSION: 1. Chronic right rotator cuff tear. 2. No acute bony abnormality. [facility] SITE ID: [id number]
--- NOTE | 2017-09-14 20:10 | CT Report ---
EXAM: CT MAXILLOFACIAL WITHOUT CONTRAST EXAM DATE: 09/14/2017 07:43 PM. CLINICAL HISTORY: Multiple falls over the last several weeks with facial and head trauma. Right perio rbital pain and bruising. COMPARISONS: No prior maxillofacial CT. Prior head CT 05/19/2017. TECHNIQUE: Thin-section axial images were acquired of the face without contrast. Post-processing: Cor onal and sagittal reformats. Other: None. In accordance with CT protocol optimization, one or more of the following dose reduction techniques w ere utilized for this exam: automated exposure control, adjustment of mA and/or KV based on patient s ize, or use of iterative reconstructive technique. FINDINGS: Soft Tissue: Mild right preseptal edema and moderate edema over the lateral strut of the right bony o rbit. No focal hematoma.The infratemporal fossa and parapharyngeal spaces are unremarkable. Orbits: Symmetric and unremarkable. Bones: No fracture or bone lesion. Temporomandibular Joints: The temporomandibular joints are symmetric and normally located. Sinuses: Normal. No mucosal thickening or fluid levels. Other: None. IMPRESSION: 1. Right preseptal and periorbital edema. 2. No acute bony abnormality. [facility] Referring Provider Line: [phone] SITE ID: [id number]
--- NOTE | 2017-09-14 20:10 | XRAY Report ---
EXAM: RIGHT SHOULDER RADIOGRAPHY EXAM DATE: 09/14/2017 07:26 PM. CLINICAL HISTORY: Pain after a fall onto the right shoulder. Multiple falls in the last several weeks . COMPARISON: None. TECHNIQUE: 3 views. FINDINGS: Bones: Normal. No fracture or bone lesion. Joints: Marked narrowing of the subacromial space with chronic erosive changes along the undersurface of the acromion. Small osteophytes at the right acromioclavicular joint. No dislocation. Soft tissues: The visualized hemithorax is unremarkable. No soft tissue swelling. IMPRESSION: 1. Chronic right rotator cuff tear. 2. No acute bony abnormality. [facility] Referring Provider Line: [phone] SITE ID: [id number]
[2017-09-14 21:14] VITALS: BP 181/81
== END 2017-09-14 21:27 | disposition home or self-care (01) ==
LOC: ED 16:42
DX: S00.83XA Contusion of other part of head, initial encounter (principal); S43.401A Unspecified sprain of right shoulder joint, initial encounter; W18.30XA Fall on same level, unspecified, initial encounter; Y93.01 Activity, walking, marching and hiking; Y92.009 Unspecified place in unspecified non-institutional (private) residence as the place of occurrence of the external cause; I10 Essential (primary) hypertension; E78.00 Pure hypercholesterolemia, unspecified; E11.9 Type 2 diabetes mellitus without complications; Z79.4 Long term (current) use of insulin; Z79.82 Long term (current) use of aspirin; Z86.73 Personal history of transient ischemic attack (TIA), and cerebral infarction without residual deficits
CPT/HCPCS: 36415; 70450; 70486; 73030; 80053; 83690; 83735; 85025; 99283; A9270

== ENCOUNTER 2017-10-28 17:25 | Outpatient (CLI) | payer MEDICARE, BC | END 2017-10-28 17:26 | disposition critical access hospital (66) | LOC: EMS 17:25 | PROVIDERS: ATTEND Surgery | DX: R41.82 Altered mental status, unspecified (principal); R73.09 Other abnormal glucose | CPT/HCPCS: A0425; A0427 ==

== ENCOUNTER 2017-10-28 17:40 | Observation (INO) | payer MEDICARE, BC ==
--- NOTE | 2017-10-28 17:49 | ED Physician Documentation ---
PD HPI FOCAL NEURO - Stated complaint Stated Complaint: ALOC - History obtained from History obtained from: EMS - History of Present Illness Timing - onset: Today (87-year-old gentleman with diabetes presents by ambulance , they were summoned for being unresponsive and found him with a blood sugar of 30. After 2 doses of oral glucose and 1 dose of IV glucose is low sugar rebounded to 114 and his mental status improved. The patient is still very confused and unable to provide any significant history.) Review of Systems Unable to obtain: Confused PD PAST MEDICAL HISTORY - Past Medical History Cardiovascular: Hypertension, High cholesterol Respiratory: None Neuro: TIA Endocrine/Autoimmune: Type 2 diabetes GI: GERD : None HEENT: Glaucoma Psych: None Musculoskeletal: Osteoarthritis, Chronic back pain Derm: None - Past Surgical History Past Surgical History: Yes Ortho: Other HEENT: Cataracts - Present Medications Home Medications: Ambulatory Orders Medication Instructions Recorded Confirmed Aspirin [Aspir 81] 81 mg PO DAILY 02/14/15 10/28/17 Cholecalciferol (Vitamin D3) 2,000 unit PO DAILY 02/14/15 10/28/17 [Vitamin D3] Ferrous Sulfate 325 mg PO BID 02/14/15 05/20/17 Sertraline HCl 50 mg PO QDBREAKFAST 02/14/15 10/28/17 Rosuvastatin Calcium [Crestor] 5 mg PO DAILY PM 09/27/16 10/28/17 Esomeprazole Magnesium [Nexium 20 mg PO DAILY 05/20/17 05/20/17 24Hr] Insulin Degludec [Tresiba 44 unit SUBQ DAILY 10/28/17 10/28/17 Flextouch U-200] Losartan Potassium [Losartan 100 mg PO DAILY 10/28/17 10/28/17 Potassium] Timolol Maleate [Timoptic-Xe] 1 drops EACHEYE DAILY 10/28/17 10/28/17 - Allergies Allergies/Adverse Reactions: Allergies Allergy/AdvReac Type Severity Reaction Status Date / Time Penicillins Allergy Mild Rash Verified 10/28/17 17:54 celecoxib [From Celebrex] Allergy Hives Verified 10/28/17 17:54 acetaminophen [From Tylenol] AdvReac Unknown Verified 10/28/17 17:54 - Social History Does the pt smoke?: Yes Smoking Status: Former smoker Does the pt drink ETOH?: No Does the pt have substance abuse?: No - Immunizations Immunizations are current?: Yes - POLST Patient has POLST: No POLST Status: Full Code PD ED PE NORMAL - Vitals Vital signs reviewed: Yes - General General: Other (He is alert and cooperative and follows commands. He does not know his name or why he is here or where he is or the date or year. When I ask him who he is or what his name is he just says I do not know. When I ask him where he grew up he also responses "I do not know.") - HEENT HEENT: PERRL, EOMI, Other (POOR DENTITION) - Neck Neck: Supple, no meningeal sign, No bony TTP - Cardiac Cardiac: RRR, No murmur - Respiratory Respiratory: No respiratory distress, Clear bilaterally - Abdomen Abdomen: Normal bowel sounds, Soft, Non tender - Back Back: No CVA TTP, No spinal TTP - Extremities Extremities: No edema, No calf tenderness / cord - Neuro Neuro: acid dumper 2-12 intact. No: Alert and oriented X 3 Eye Opening: Spontaneous Motor: Obeys Commands Verbal: Confused GCS Score: 14 - Psych Psych: Normal mood, Normal affect Results - Vitals Vitals: Vital Signs - 24 hr 10/28/17 10/28/17 10/28/17 17:40 18:02 18:30 Temperature 36 C L Heart Rate 69 67 66 Respiratory 18 18 20 Rate Blood Pressure 197/92 H 181/109 H 164/74 H O2 Saturation 98 97 Oxygen O2 Source [With Activity] Room air O2 Source [Without Activity] Room air O2 Source Room air - Labs Labs: Laboratory Tests 10/28/17 10/28/17 10/28/17 18:15 18:15 18:28 WBC 13.0 H RBC 4.94 Hgb 14.6 Hct 44.6 MCV 90.4 MCH 29.6 MCHC 32.8 RDW 14.0 Plt Count 212 MPV 8.8 Neut # 9.1 H Lymph # 2.1 Miner # 0.9 Eos # 0.8 H Baso # 0.1 Absolute Nucleated RBC 0.00 Nucleated RBC % 0.0 Sodium 136 Potassium 4.0 Chloride 101 Carbon Dioxide 29 Anion Gap 6.0 BUN 20 Creatinine 1.4 H Estimated GFR (MDRD) 48 L Glucose 115 H Calcium 8.5 Total Bilirubin 0.5 AST 18 ALT 14 Alkaline Phosphatase 96 Total Protein 6.9 Albumin 3.5 Globulin 3.4 Albumin/Globulin Ratio 1.0 Lipase < 10 L Urine Color YELLOW Urine Clarity CLEAR Urine pH 6.5 Ur Specific [place] 1.010 Urine Protein NEGATIVE Urine Glucose (UA) 100 H Urine Ketones NEGATIVE Urine Occult Blood NEGATIVE Urine Nitrite NEGATIVE Urine Bilirubin NEGATIVE Urine Urobilinogen 0.2 (NORMAL) Ur Leukocyte Esterase NEGATIVE Ur Microscopic Review NOT INDICATED Urine Culture Comments NOT INDICATED PD MEDICAL DECISION MAKING - ED course ED course: 87-year-old gentleman with hypoglycemic episode and persistent mild altered mental status afterwards. He is long-acting insulin was last taken at 8 AM and he did eat. Given the long-acting insulin he will need to be observed overnight. Spoke with Dr. Serna initially at 6 PM for observation, he diverted in the night hospitalist, and Dr. Quintero called me around 7:20 PM. Departure - Departure Disposition: ED Place in Observation Clinical Impression: Hypoglycemia Condition: Stable Discharge Date/Time: 10/28/17 20:53
[2017-10-28 18:24] LABS: BASOPHILS # (AUTO) 0.1 10^3/uL (0.0-0.1); BASOPHILS % (AUTO) 1.1 %; EOSINOPHILS # (AUTO) 0.8 10^3/uL (0.0-0.7); HGB - HEMOGLOBIN 14.6 g/dL (14.0-18.0); LYMPHOCYTES # (AUTO) 2.1 10^3/uL (1.5-3.5); LYMPHOCYTES % (AUTO) 16.1 %; MEAN CORPUSCULAR HEMOGLOBIN 29.6 pg (27.0-31.0); MEAN CORPUSCULAR HGB CONC 32.8 g/dL (32.0-36.0); MEAN CORPUSCULAR VOLUME 90.4 fL (80.0-94.0); MEAN PLATELET VOLUME 8.8 fL (7.4-11.4); MONOCYTES # (AUTO) 0.9 10^3/uL (0.0-1.0); MONOCYTES % (AUTO) 6.7 %; NEUTROPHILS # (AUTO) 9.1 10^3/uL (1.5-6.6); NEUTROPHILS % (AUTO) 70.1 %; PLT - PLATELET COUNT 212 10^3/uL (130-450); RED BLOOD COUNT 4.94 10^6/uL (4.70-6.10)
[2017-10-28 18:33] LABS: BILIRUBIN,URINE NEGATIVE (NEGATIVE); CLARITY,URINE CLEAR (CLEAR); GLUCOSE, URINE (UA) 100 mg/dL (NEGATIVE); KETONES,URINE (UA) NEGATIVE (NEGATIVE); LEUKOCYTE ESTERASE, URINE NEGATIVE (NEGATIVE); NITRITE,URINE NEGATIVE (NEGATIVE); OCCULT BLOOD,URINE NEGATIVE (NEGATIVE); PH,URINE 6.5 PH (5.0-7.5); PROTEIN,URINE NEGATIVE (NEGATIVE); UROBILINOGEN,URINE 0.2 (NORMAL) E.U./dL (NORMAL)
[2017-10-28 18:35] LABS: ALBUMIN 3.5 g/dL (3.2-5.5); ALKALINE PHOSPHATASE 96 IU/L (42-121); ALT ALANINE AMINOTRANSFERASE 14 IU/L (10-60); AST ASPARTATE AMINOTRANSFERASE 18 IU/L (10-42); BILIRUBIN,TOTAL 0.5 mg/dL (0.2-1.0); BUN - BLOOD UREA NITROGEN 20 mg/dL (6-20); CALCIUM 8.5 mg/dL (8.5-10.3); CARBON DIOXIDE - CO2 29 mmol/L (21-32); CHLORIDE 101 mmol/L (101-111); CREATININE 1.4 mg/dL (0.6-1.2); GFR - MDRD 48 (>89); GLUCOSE 115 mg/dL (70-100); SODIUM 136 mmol/L (135-145); TOTAL PROTEIN 6.9 g/dL (6.7-8.2)
[2017-10-28 18:36] LABS: LIPASE < 10 U/L (22-51)
[2017-10-28] MEDS ORDERED: SODIUM CHLORIDE FLUSH 0.9% 10 ML SYRINGE IVP PRN (19:37)
[2017-10-28] MEDS ORDERED: ONDANSETRON 4 MG/2 ML VIAL IVP PRN (19:37)
[2017-10-28] MEDS ORDERED: NON FORMULARY MED (Rosuvastatin Calcium [Crestor] 5 MG) PO SCH (21:00)
[2017-10-28] MEDS ORDERED: DEXTROSE 50% ABBOJECT 25 GM/50 ML SYRINGE IVP ONE ×3 (21:34)
[2017-10-28] MEDS ORDERED: DEXTROSE GEL 37.5 GM TUBE PO ONE (21:34)
[2017-10-28] MEDS: FERROUS SULFATE 325 MG TABLET PO SCH (21:52)
[2017-10-28] MEDS: LOSARTAN 50 MG TABLET PO SCH (21:52)
[2017-10-28] MEDS ORDERED: ATORVASTATIN 10 MG TABLET PO SCH (22:00)
--- NOTE | 2017-10-28 23:00 | HISTORY & PHYSICAL EXAMINATION ---
DATE OF SERVICE: 10/28/2017 Physician: Isabel Quintero MD PRIMARY CARE PHYSICIAN: Tavo Arnold MD CHIEF COMPLAINT: Altered mental status and hypoglycemia. SOURCE OF HISTORY: History was obtained interviewing the patient plus obtaining further detail from ER physician's report. HISTORY OF PRESENT ILLNESS: The patient is a pleasant 87-year-old male with multiple past medical problems who was brought into the ER by ambulance after his called 911 reporting altered mental status. Per EMS report, the patient's blood glucose was 33 on the scene. He was lethargic, and the mental status change was attributed to the hypoglycemia. Initially, he received oral glucose, subsequently he received 1 amp of D50 and as a result, his mental status slowly improved. When he arrived to the ER, he remained with normal blood glucose, however, his mentation was still not quite back to his baseline. In addition, the ER physician's concern was that this patient had been on long-acting insulin, last he took insulin was 10 hours prior to admission and hypoglycemic episodes could still be expected in the next 10-12 hours. Interviewing the patient, he reports not remembering much after getting up in the morning and eating his breakfast. He, however, remembers past events and his usual daily routine well. He reports seeing his primary care physician about 2 weeks ago, at which time his long-acting insulin was increased. He reports taking 40 units of long-acting insulin, which he injects in the morning. Two weeks ago his primary care physician increased the insulin by "half unit", which seems somewhat unusual and when I double checked with the patient, he could not further clarify. In any case, the patient seems sure about using insulin once a day and he is sure about the 40 units being recently increased. Patient reports usually not checking his blood glucose, however, he is compliant with his medications. He also reports not having unusually increased or decreased food intake. He eats his usual diet. Regarding other circumstances leading to admission, the patient cannot provide any input, he tells me, "I don't remember." PAST MEDICAL HISTORY 1. Insulin-dependent diabetes. 2. Dyslipidemia. 3. Hypertension. 4. Depression. 5. Chronic renal insufficiency with creatinine baseline between 1.3 and 2. 6. Benign prostate hypertrophy. 7. Osteoarthritis/history of hip fracture, status post arthroplasty. 8. Dementia/history of falls. 9. History of transient ischemic attack, patient was admitted in May 2017, at which time he underwent basic TIA workup which included echocardiogram, carotid ultrasound and MRI of the brain. The studies were negative and it is possible that the patient also had TIA-like symptoms due to hypoglycemia. 10. CODE STATUS: FULL CODE. OUTPATIENT MEDICATIONS: Include 1. Timolol eyedrops. 2. Insulin degludec (Tresiba). 3. Vitamin D. 4. Aspirin. 5. Crestor. 6. Losartan. 7. Zoloft. 8. Ferrous sulfate. 9. Esomeprazole. SOCIAL HISTORY: The patient is a nonsmoker. He ambulates with a walker. He lives with his . FAMILY HISTORY: The patient could not provide. REVIEW OF SYSTEMS: Please see pertinent positives and negatives are listed above at history of present illness, I completed 12-point review, the patient did not have any complaint. ER workup and laboratories reviewed per electronic medical record. PHYSICAL EXAMINATION VITAL SIGNS: Temperature 36.5 Celsius, heart rate between 60 and 70, blood pressure 180/80, respiratory rate 16, oxygen saturation 96% on room air. GENERAL: The patient is a well-developed, elderly male, who was not in distress. NEUROLOGIC: Alert, oriented, nonfocal, answered my questions appropriately. PSYCH: Cooperative, pleasant to talk to. SKIN: No jaundice. No pallor. Small superficial skin abrasion/wound on the right second toe. LYMPH: Minimal pitting pedal edema bilaterally symmetric. RESPIRATORY: Clear to auscultation without wheezes or crackles. No increased work of breathing. CARDIOVASCULAR: S1, S2, distant heart sounds. Regular rate and rhythm. ABDOMEN: Soft, benign, nontender. Bowel tones present. Oral mucosa moist. No oral ulcers or thrush. MUSCULOSKELETAL: Atraumatic. ASSESSMENT AND PLAN 1. The patient is an 87-year-old male with multiple chronic medical problems including insulin-dependent diabetes, who was brought in with altered mental status/ encephalopathy in the setting of a hypoglycemic episode. He uses long-acting insulin and seems pretty sure that the insulin dose was increased 2 weeks ago by his primary care physician. That could very well be the reason for hypoglycemia. In addition, he takes long-acting insulin degludec/ Tresiba, which is described as ultra long-acting and most likely the patient would benefit from the use of just good old insulin Lantus/Glargine rather than a newer preparation, which is described as ultra long-acting. In any case, during this admission our goal should be to observe the patient, monitor blood glucose level, and hold insulin. We will provide treatment for hypoglycemia/hypoglycemia protocol in case the patient would have further hypoglycemic episodes. For now, he looks stable with steadily improving mentation and I believe he is near his baseline. Therefore, he is getting admitted under observation. Regarding possible other issues that could cause encephalopathy, patient appeared neurologically nonfocal and I do not see indication to entertain workup of neurologic issues. Also notable that patient did have a full TIA workup back in May 2017, which was negative. 2. Additional issue on admission is uncontrolled blood pressure/hypertension. For that, we will stop IV hydration, which was started in the ER, monitor the blood pressure , and order antihypertensive as needed. 3. Regarding home medications. I will reconcile when the final list is available. We will obviously hold insulin. Regarding discharge medication list, we should contact Dr. Arnold and discuss diabetic management or just discharge the patient with decreased dose of long-acting insulin and refer him back to see Dr. Arnold. I would also recommend using a blood glucose log with blood glucose checks at least once or twice a day. For safety reasons, I would probably use insulin Lantus instead of Tresiba and I would probably use 30 units instead of 40 or 44. 4. Deep venous thrombosis prophylaxis. Considering short hospital stay, I will use sequential compression device. If the patient stays longer than 24 hours, then pharmacologic prophylaxis should be started. 5. CODE STATUS: FULL CODE per previous record which the patient confirmed. ADMISSION DIAGNOSES 1. Hypoglycemia secondary to long-acting insulin. 2. Encephalopathy/altered mental status in the setting of hypoglycemia. 3. Chronic renal insufficiency, creatinine at baseline. 4. Uncontrolled hypertension. Attestation: I certify that the reasonable expectation is that this patient will have a short hospital stay, no longer than 48 hrs. I expect that based on the presentation, ER work up and steadily improving clinical course. Time spent in the care of this patient was 50 minutes. cc: Tavo Arnold M.D. TD: 10/28/2017 23:00 [facility]
[2017-10-29] MEDS: SODIUM CHLORIDE FLUSH 0.9% 10 ML SYRINGE IVP SCH ×2 (00:02→10:14)
[2017-10-29] MEDS ORDERED: PANTOPRAZOLE 40 MG TABLET PO SCH (07:00)
[2017-10-29 07:01] LABS: BASOPHILS # (AUTO) 0.1 10^3/uL (0.0-0.1); BASOPHILS % (AUTO) 0.4 %; EOSINOPHILS # (AUTO) 0.2 10^3/uL (0.0-0.7); EOSINOPHILS % (AUTO) 1.8 %; HGB - HEMOGLOBIN 13.9 g/dL (14.0-18.0); LYMPHOCYTES # (AUTO) 2.3 10^3/uL (1.5-3.5); LYMPHOCYTES % (AUTO) 16.6 %; MEAN CORPUSCULAR HEMOGLOBIN 29.4 pg (27.0-31.0); MEAN CORPUSCULAR HGB CONC 32.7 g/dL (32.0-36.0); MEAN CORPUSCULAR VOLUME 89.9 fL (80.0-94.0); MEAN PLATELET VOLUME 8.8 fL (7.4-11.4); MONOCYTES # (AUTO) 0.7 10^3/uL (0.0-1.0); MONOCYTES % (AUTO) 5.4 %; NEUTROPHILS # (AUTO) 10.3 10^3/uL (1.5-6.6); NEUTROPHILS % (AUTO) 75.8 %; PLT - PLATELET COUNT 204 10^3/uL (130-450); RED BLOOD COUNT 4.72 10^6/uL (4.70-6.10); WHITE BLOOD COUNT 13.6 x10^3/uL (4.8-10.8)
[2017-10-29 07:22] LABS: CALCIUM 8.3 mg/dL (8.5-10.3); CREATININE 1.3 mg/dL (0.6-1.2)
[2017-10-29] MEDS ORDERED: SERTRALINE 50 MG TABLET PO SCH (08:00)
[2017-10-29] MEDS: FERROUS SULFATE 325 MG TABLET PO SCH (08:17)
[2017-10-29] MEDS ORDERED: ESOMEPRAZOLE MAGNESIUM 20 MG PO SCH (09:00)
[2017-10-29] MEDS ORDERED: ASPIRIN EC 81 MG TABLET PO SCH (09:00)
[2017-10-29] MEDS ORDERED: TIMOLOL MALEATE EACHEYE SCH (09:00)
[2017-10-29] MEDS ORDERED: POLYETHYLENE GLYCOL 3350 17 GM PACKET PO SCH (09:00)
[2017-10-29] MEDS ORDERED: CHOLECALCIFEROL 1,000 UNIT TABLET PO SCH (09:00)
[2017-10-29] MEDS: LOSARTAN 50 MG TABLET PO SCH (10:14)
[2017-10-29 10:41] VITALS: BP 141/70
--- NOTE | 2017-10-29 11:23 | Discharge Plan ---
Discharge Plan Disposition: 01 Home, Self Care Condition: Fair Diet: Diabetic Activity Restrictions: Activity as Tolerated Shower Restrictions: No Driving Restrictions: No Weight Bearing: Full Weight Additional Instructions or Follow Up instructions: You presented with low blood glucose and confusion due to it. You were given glucose and your blood sugar has improved. You were held in the hospital overnight to monitor your blood glucose but it remained stable during the hospitalization. You had your long acting insulin dose increased from 40 units to 44 units which is likely what caused your blood glucose to drop. I suggest you hold your insulin today and then decrease your insulin dose to 30 units till you get into see your doctor next week then he can adjust it back up as he deems necessary. No Smoking: If you smoke, Please STOP! Call for help. Follow-up with: Levi Arnold MD [Primary Care Provider] -
--- NOTE | 2017-10-29 11:29 | DISCHARGE SUMMARY ---
Discharge Summary Admit Date: 10/28/17 Discharge Date: 10/29/17 Discharging Provider: John Serna MD Primary Care Provider: Tavo Arnold MD Code Status: Attempt Resuscitation Condition at Discharge: Fair Discharge Disposition: 01 Home, Self Care - DIAGNOSES Admission Diagnoses: 1. Hypoglycemia secondary to long-acting insulin 2. Encephalopathy/altered mental status in the setting of hypoglycemia 3. Chronic renal insufficiency 4. Uncontrolled hypertension Discharge Diagnoses with Status of Each Condition: 1. Hypoglycemia secondary to long acting insulin: Improved 2. Metabolic encephalopathy secondary to hypoglycemia: Resolved 3. Chronic kidney disease stage III: Stable 4. Essential hypertension: Stable - HPI History of Present Illness: Patient is an 87-year-old gentleman with a past medical history significant for insulin-dependent diabetes, hyperlipidemia, hypertension, depression, CKD stage III, BPH, osteoarthritis, history of TIA and dementia who was brought to the emergency department by ambulance after his called 911 reporting that he had altered mental status. Per EMS report the patient's blood glucose was 33 on scene. He was lethargic and mental status change was attributed to hypoglycemia. Initially he was given oral glucose subsequently he received 1 amp of D50 and as a result his mental status slowly improved. When he arrived in the emergency department he remained with normal blood glucose, however his mentation was still not back to his baseline. In addition the ER physician's concern was that the patient had been on long-acting insulin with his last dose being 10 hours prior to admission and would still be expected to have a hypoglycemic episodes over the next 10-12 hours. Upon further questioning the patient reported not remembering much after getting up this morning and eating his breakfast. He however remembers past events in his usual daily routine well. He reported seeing his primary care physician about 2 weeks ago at which time his long-acting insulin was increased from 40 units up to 44 units. The patient also reported not typically checking his blood glucose however he stated he was compliant with the medication. He denied having had any changes in his food intake or exercise. He was placed in observation for monitoring of his blood glucose. - HOSPITAL COURSE Hospital Course: Over the patient's observation stay the patient had no further episodes of hypoglycemia. He did not require any additional doses of D50 or oral glucose. The patient's blood glucose remained stable. He did not receive his morning dose of insulin and after breakfast the patient's blood sugar was 177. The patient's mental status returned to its baseline. The patient had no other complaints during the observation stay. The patient was advised to skip his insulin dose for today and restart his insulin tomorrow at 30 units daily. He was advised to see his primary care physician in 2-3 days and check his blood glucose at home. He may need further adjustment of his insulin regimen when he is seen by his primary care physician as this dose may be too low but at this point we are not so concerned about the patient being hyperglycemic for a few days as we would be if he was hypoglycemic. - ALLERGIES Allergies/Adverse Reactions: Allergies Allergy/AdvReac Type Severity Reaction Status Date / Time Penicillins Allergy Mild Rash Verified 10/28/17 17:54 celecoxib [From Celebrex] Allergy Hives Verified 10/28/17 17:54 acetaminophen [From Tylenol] AdvReac Unknown Verified 10/28/17 17:54 - MEDICATIONS Home Medications: Ambulatory Orders Medication Instructions Recorded Confirmed Aspirin [Aspir 81] 81 mg PO DAILY 02/14/15 10/28/17 Cholecalciferol (Vitamin D3) 2,000 unit PO DAILY 02/14/15 10/28/17 [Vitamin D3] Sertraline HCl 50 mg PO QDBREAKFAST 02/14/15 10/28/17 Rosuvastatin Calcium [Crestor] 5 mg PO DAILY PM 09/27/16 10/28/17 Losartan Potassium 100 mg PO DAILY 10/28/17 10/28/17 Timolol Maleate [Timoptic-Xe] 1 drops EACHEYE DAILY 10/28/17 10/28/17 Insulin Degludec [Tresiba 30 unit SUBQ DAILY #0 10/29/17 10/28/17 Flextouch U-200] - PHYSICAL EXAM AT DISCHARGE General Appearance: positive: No acute distress, Alert Eyes Bilateral: positive: Normal inspection, PERRL, EOMI, No lid inflammation, Conjunctivae nml, No scleral icterus ENT: positive: ENT inspection nml, Pharynx nml, No signs of dehydration. negative: Purulent nasal drainage, Pharyngeal erythema, Oral lesions Neck: positive: Nml inspection, Thyroid nml, No JVD, Trachea midline. negative : Thyromegaly, Lymphadenopathy (R), Lymphadenopathy (L), Stiff neck, Carotid bruit, Tracheal deviation Respiratory: positive: Chest non-tender, No respiratory distress, Breath sounds nml. negative: Wheezes, Rales, Rhonchi Cardiovascular: positive: Regular rate & rhythm, No murmur, No gallop. negative : JVD present Peripheral Pulses: positive: 2+ Abdomen: positive: Non-tender, No organomegaly, Nml bowel sounds, No distention. negative: Guarding, Rebound, Hepatomegaly Back: positive: Nml inspection. negative: CVA tenderness (R), CVA tenderness (L ) Skin: positive: Color nml, No rash, Warm. negative: Cyanosis, Diaphoresis, Pallor Extremities: positive: Non-tender, Full ROM, Nml appearance, No pedal edema Neurologic/Psychiatric: positive: Oriented x3, CN's nml (2-12), Motor nml, Sensation nml, Mood/affect nml - LABS Result Diagrams: 10/29/17 06:46 10/29/17 06:46 Other Lab Results: Laboratory Results WBC 13.6 x10^3/uL (4.8-10.8) H 10/29/17 06:46 RBC 4.72 10^6/uL (4.70-6.10) 10/29/17 06:46 Hgb 13.9 g/dL (14.0-18.0) L 10/29/17 06:46 Hct 42.5 % (42.0-52.0) 10/29/17 06:46 MCV 89.9 fL (80.0-94.0) 10/29/17 06:46 MCH 29.4 pg (27.0-31.0) 10/29/17 06:46 MCHC 32.7 g/dL (32.0-36.0) 10/29/17 06:46 RDW 14.0 % (12.0-15.0) 10/29/17 06:46 Plt Count 204 10^3/uL (130-450) 10/29/17 06:46 MPV 8.8 fL (7.4-11.4) 10/29/17 06:46 Neut # 10.3 10^3/uL (1.5-6.6) H 10/29/17 06:46 Lymph # 2.3 10^3/uL (1.5-3.5) 10/29/17 06:46 [place] # 0.7 10^3/uL (0.0-1.0) 10/29/17 06:46 Eos # 0.2 10^3/uL (0.0-0.7) 10/29/17 06:46 Baso # 0.1 10^3/uL (0.0-0.1) 10/29/17 06:46 Absolute Nucleated RBC 0.01 x10^3/uL 10/29/17 06:46 Nucleated RBC % 0.0 /100WBC 10/29/17 06:46 Sodium 136 mmol/L (135-145) 10/29/17 06:46 Potassium 4.3 mmol/L (3.5-5.0) 10/29/17 06:46 Chloride 102 mmol/L (101-111) 10/29/17 06:46 Carbon Dioxide 26 mmol/L (21-32) 10/29/17 06:46 Anion Gap 8.0 (6-13) 10/29/17 06:46 BUN 18 mg/dL (6-20) 10/29/17 06:46 Creatinine 1.3 mg/dL (0.6-1.2) H 10/29/17 06:46 Estimated GFR (MDRD) 52 (>89) L 10/29/17 06:46 Glucose 105 mg/dL (70-100) H 10/29/17 06:46 POC Whole Bld Glucose 177 mg/dL (70 - 100) H 10/29/17 10:38 Calcium 8.3 mg/dL (8.5-10.3) L 10/29/17 06:46 Total Bilirubin 0.5 mg/dL (0.2-1.0) 10/28/17 18:15 AST 18 IU/L (10-42) 10/28/17 18:15 ALT 14 IU/L (10-60) 10/28/17 18:15 Alkaline Phosphatase 96 IU/L (42-121) 10/28/17 18:15 Total Protein 6.9 g/dL (6.7-8.2) 10/28/17 18:15 Albumin 3.5 g/dL (3.2-5.5) 10/28/17 18:15 Globulin 3.4 g/dL (2.1-4.2) 10/28/17 18:15 Albumin/Globulin Ratio 1.0 (1.0-2.2) 10/28/17 18: Lipase < 10 U/L (22-51) L 10/28/17 18: Urine Color YELLOW 10/28/17 18: Urine Clarity CLEAR (CLEAR) 10/28/17 18: Urine pH 6.5 PH (5.0-7.5) 10/28/17 18: Ur Specific [place] 1.010 (1.002-1.030) 10/28/17 18: Urine Protein NEGATIVE mg/dL (NEGATIVE) 10/28/17 18: Urine Glucose (UA) 100 mg/dL (NEGATIVE) H 10/28/17 18: Urine Ketones NEGATIVE mg/dL (NEGATIVE) 10/28/17 18: Urine Occult Blood NEGATIVE (NEGATIVE) 10/28/17 18: Urine Nitrite NEGATIVE (NEGATIVE) 10/28/17 18: Urine Bilirubin NEGATIVE (NEGATIVE) 10/28/17 18: Urine Urobilinogen 0.2 (NORMAL) E.U./dL (NORMAL) 10/28/17 18: Ur Leukocyte Esterase NEGATIVE (NEGATIVE) 10/28/17 18: Ur Microscopic Review NOT INDICATED 10/28/17 18: Urine Culture Comments NOT INDICATED 10/28/17 18: - DIAGNOSTIC IMAGING Diagnostic Imaging Results: Final report reviewed - FOLLOW UP Follow Up: Patient's insulin dose lowered to 30 units he will follow-up with his PCP for further adjustments to insulin. Patient was discharged in stable condition and had no further episodes of hypoglycemia. - TIME SPENT Time Spent in Discharge (Minutes): 35
[2017-10-29] MEDS ORDERED: ATORVASTATIN 10 MG TABLET PO SCH (21:00)
== END 2017-10-29 12:35 | disposition home or self-care (01) ==
LOC: EDUNIT# → ED 17:40 → OBS 19:37
PROVIDERS: ADMIT Internal Medicine; ATTEND Internal Medicine
DX: E11.649 Type 2 diabetes mellitus with hypoglycemia without coma (principal); G92 Toxic encephalopathy; T38.3X5A Adverse effect of insulin and oral hypoglycemic [antidiabetic] drugs, initial encounter; K21.9 Gastro-esophageal reflux disease without esophagitis; E78.5 Hyperlipidemia, unspecified; F32.9 Major depressive disorder, single episode, unspecified; E11.22 Type 2 diabetes mellitus with diabetic chronic kidney disease; I12.9 Hypertensive chronic kidney disease with stage 1 through stage 4 chronic kidney disease, or unspecified chronic kidney disease; N18.3 Chronic kidney disease, stage 3 (moderate); N40.0 Benign prostatic hyperplasia without lower urinary tract symptoms; F03.90 Unspecified dementia, unspecified severity, without behavioral disturbance, psychotic disturbance, mood disturbance, and anxiety; Z86.73 Personal history of transient ischemic attack (TIA), and cerebral infarction without residual deficits; Z79.4 Long term (current) use of insulin; Z87.891 Personal history of nicotine dependence; Z79.82 Long term (current) use of aspirin; Z91.81 History of falling; Z96.649 Presence of unspecified artificial hip joint
CPT/HCPCS: 36415; 80048; 80053; 81003; 83690; 85025; 99284; 99285; A9270; G0378; 81001; 87086

== ENCOUNTER 2018-07-20 11:28 | Outpatient (CLI) | payer MEDICARE, BC ==
[2018-07-20 19:58] LABS: BASOPHILS # (AUTO) 0.1 10^3/uL (0.0-0.1); BASOPHILS % (AUTO) 0.8 %; EOSINOPHILS # (AUTO) 0.8 10^3/uL (0.0-0.7); HGB - HEMOGLOBIN 15.3 g/dL (14.0-18.0); LYMPHOCYTES # (AUTO) 2.4 10^3/uL (1.5-3.5); LYMPHOCYTES % (AUTO) 29.1 %; MEAN CORPUSCULAR HEMOGLOBIN 30.9 pg (27.0-31.0); MEAN CORPUSCULAR HGB CONC 32.7 g/dL (32.0-36.0); MEAN CORPUSCULAR VOLUME 94.3 fL (80.0-94.0); MEAN PLATELET VOLUME 10.4 fL (7.4-11.4); MONOCYTES # (AUTO) 0.7 10^3/uL (0.0-1.0); MONOCYTES % (AUTO) 8.5 %; NEUTROPHILS # (AUTO) 4.4 10^3/uL (1.5-6.6); NEUTROPHILS % (AUTO) 52.6 %; PLT - PLATELET COUNT 206 10^3/uL (130-450); RED BLOOD COUNT 4.96 10^6/uL (4.70-6.10); RED CELL DISTRIBUTION WIDTH 13.7 % (12.0-15.0); WHITE BLOOD COUNT 8.4 x10^3/uL (4.8-10.8)
[2018-07-20 20:33] LABS: ALBUMIN 3.4 g/dL (3.2-5.5); ALBUMIN/GLOBULIN RATIO 1.2 (1.0-2.2); ALKALINE PHOSPHATASE 129 IU/L (42-121); ALT ALANINE AMINOTRANSFERASE 13 IU/L (10-60); AST ASPARTATE AMINOTRANSFERASE 19 IU/L (10-42); BILIRUBIN,TOTAL 0.4 mg/dL (0.2-1.0); BUN - BLOOD UREA NITROGEN 15 mg/dL (6-20); CALCIUM 8.8 mg/dL (8.5-10.3); CARBON DIOXIDE - CO2 32 mmol/L (21-32); CHLORIDE 99 mmol/L (101-111); CHOLESTEROL 131 mg/dL; CREATININE 1.5 mg/dL (0.6-1.2); GFR - MDRD 44 (>89); GLUCOSE 241 mg/dL (70-100); HDL CHOLESTEROL 33 mg/dL; LDL CHOLESTEROL,CALCULATED 53 mg/dL; LDL/HDL RATIO 1.6 (<3.6); SODIUM 136 mmol/L (135-145); TOTAL PROTEIN 6.3 g/dL (6.7-8.2); VLDL CHOLESTEROL 45 mg/dL
[2018-07-20 20:34] LABS: HB2 TOTAL 16.1 g/dL; HEMOGLOBIN A1C 1.44 g/dL; HEMOGLOBIN A1C % 10.3 % (4.6-6.2)
== END 2018-07-20 23:59 | disposition home or self-care (01) ==
LOC: LAB.WCP 11:28
PROVIDERS: ATTEND Family Medicine
DX: N28.9 Disorder of kidney and ureter, unspecified (principal); E78.5 Hyperlipidemia, unspecified; E11.51 Type 2 diabetes mellitus with diabetic peripheral angiopathy without gangrene
CPT/HCPCS: 36415; 80053; 80061; 82043; 83036; 83721; 85025

== ENCOUNTER 2018-08-18 08:00 | Outpatient (CLI) | payer MEDICARE, BC ==
[2018-08-18 19:43] LABS: ALBUMIN 3.4 g/dL (3.2-5.5); ALBUMIN/GLOBULIN RATIO 1.3 (1.0-2.2); BILIRUBIN,TOTAL 0.4 mg/dL (0.2-1.0); CALCIUM 8.5 mg/dL (8.5-10.3); CREATININE 1.6 mg/dL (0.6-1.2); TOTAL PROTEIN 6.1 g/dL (6.7-8.2)
== END 2018-08-18 23:59 | disposition home or self-care (01) ==
LOC: LAB.WCP 08:00
PROVIDERS: ATTEND Family Medicine
DX: E87.5 Hyperkalemia (principal)
CPT/HCPCS: 36415; 80053

== ENCOUNTER 2018-10-17 14:42 | Outpatient (CLI) | payer MEDICARE, BC | END 2018-10-17 14:43 | disposition critical access hospital (66) | LOC: EMS 14:42 | PROVIDERS: ATTEND Surgery | DX: R29.6 Repeated falls (principal); R53.1 Weakness | CPT/HCPCS: A0425; A0427 ==

== ENCOUNTER 2018-10-17 14:55 | Emergency (ER) | payer MEDICARE, BC ==
[2018-10-17] MEDS ORDERED: SODIUM CHLORIDE 0.9% 1,000 ML IV STA (15:03)
--- NOTE | 2018-10-17 15:09 | ED Physician Documentation ---
History of Present Illness - Stated complaint Stated Complaint: GLF - Chief complaint Chief Complaint: General - History obtained from History obtained from: Patient, Family, EMS - History of Present Illness Timing: Today Pain level max: 0 Pain level now: 0 Improved by: IVF with EMS Worsened by: standing, walking - Additonal information Additional information: 88-year-old male, insulin-dependent diabetic, states that he is not feeling weaker than usual over the past few days. States his blood sugars have been "high". He does not know what they have been because he does not regularly check his blood sugars. No fevers. Mild cough today. He states that he has fallen 3 times. No injuries. Initially hypotensive with EMS, 80s over 50s. Responded well to IV fluids and feels better. Review of Systems Ten Systems: 10 systems reviewed and negative Constitutional: denies: Fever Ears: denies: Ear pain Nose: denies: Rhinorrhea / runny nose, Congestion Throat: denies: Sore throat Cardiac: denies: Chest pain / pressure, Palpitations Respiratory: reports: Cough (dry) GI: denies: Abdominal Pain, Nausea, Vomiting, Diarrhea Skin: denies: Rash Musculoskeletal: denies: Neck pain, Back pain Neurologic: denies: Headache PD PAST MEDICAL HISTORY - Past Medical History Past Medical History: Yes Cardiovascular: Hypertension, High cholesterol Respiratory: None Endocrine/Autoimmune: Type 2 diabetes GI: GERD : None HEENT: Glaucoma Psych: None Musculoskeletal: Osteoarthritis, Chronic back pain Derm: None - Past Surgical History Past Surgical History: Yes Ortho: Other HEENT: Cataracts - Present Medications Home Medications: Ambulatory Orders Medication Instructions Recorded Confirmed Aspirin [Aspir 81] 81 mg PO DAILY 02/14/15 10/28/17 Cholecalciferol (Vitamin D3) 2,000 unit PO DAILY 02/14/15 10/28/17 [Vitamin D3] Sertraline HCl 50 mg PO QDBREAKFAST 02/14/15 10/28/17 Rosuvastatin Calcium [Crestor] 5 mg PO DAILY PM 09/27/16 10/28/17 Losartan Potassium 100 mg PO DAILY 10/28/17 10/28/17 Timolol Maleate [Timoptic-Xe] 1 drops EACHEYE DAILY 10/28/17 10/28/17 Insulin Degludec [Tresiba 30 unit SUBQ DAILY #0 10/29/17 10/28/17 Flextouch U-200] - Allergies Allergies/Adverse Reactions: Allergies Allergy/AdvReac Type Severity Reaction Status Date / Time Penicillins Allergy Mild Rash Verified 10/17/18 15:02 celecoxib [From Celebrex] Allergy Hives Verified 10/17/18 15:02 acetaminophen [From Tylenol] AdvReac Unknown Verified 10/17/18 15:02 - Social History Does the pt smoke?: Yes Smoking Status: Former smoker Does the pt drink ETOH?: No Does the pt have substance abuse?: No - Immunizations Immunizations are current?: Yes - POLST Patient has POLST: No POLST Status: Full Code PD ED PE NORMAL - Vitals Vital signs reviewed: Yes - General General: Alert and oriented X 3, No acute distress - HEENT HEENT: Moist mucous membranes - Neck Neck: Supple, no meningeal sign - Cardiac Cardiac: RRR - Respiratory Respiratory: No respiratory distress, Clear bilaterally - Abdomen Abdomen: Soft, Non tender, Non distended - Derm Derm: Warm and dry - Extremities Extremities: No edema, No calf tenderness / cord - Neuro Neuro: Alert and oriented X 3 Results - Vitals Vitals: Vital Signs - 24 hr 10/17/18 10/17/18 10/17/18 14:58 15:03 17:28 Temperature 36.1 C L Heart Rate 78 75 80 Respiratory 20 18 18 Rate Blood Pressure 133/63 H 142/73 H 134/75 H O2 Saturation 92 94 94 Oxygen O2 Source [] Room air O2 Source [] Room air O2 Source Room air - EKG (time done) 1525 Rate: Rate (enter#) (74) Rhythm: NSR Young: Normal Intervals: Normal CT QRS: Normal Ischemia: Normal ST segments Computer interpretation: Agree with computer - Labs Labs: Laboratory Tests 10/17/18 10/17/18 10/17/18 15:32 15:32 15:32 WBC 13.0 H RBC 4.94 Hgb 15.1 Hct 45.8 MCV 92.8 MCH 30.6 MCHC 33.0 RDW 13.4 Plt Count 162 MPV 10.2 Neut # (Auto) 9.3 H Lymph # (Auto) 2.3 [place] # (Auto) 1.1 H Eos # (Auto) 0.3 Baso # (Auto) 0.1 Absolute Nucleated RBC 0.01 Nucleated RBC % 0.1 Sodium 130 L Potassium 4.5 Chloride 95 L Carbon Dioxide 25 Anion Gap 10.0 BUN 30 H Creatinine 2.0 H Estimated GFR (MDRD) 32 L Glucose 324 H Calcium 8.6 Total Bilirubin 0.8 AST 20 ALT 13 Alkaline Phosphatase 102 Troponin I 0.04 Total Protein 6.2 L Albumin 3.3 Globulin 2.9 Albumin/Globulin Ratio 1.1 Lipase 19 L Urine Color Urine Clarity Urine pH Ur Specific [place] Urine Protein Urine Glucose (UA) Urine Ketones Urine Occult Blood Urine Nitrite Urine Bilirubin Urine Urobilinogen Ur Leukocyte Esterase Ur Microscopic Review Urine Culture Comments 10/17/18 16:51 WBC RBC Hgb Hct MCV MCH MCHC RDW Plt Count MPV Neut # (Auto) Lymph # (Auto) [place] # (Auto) Eos # (Auto) Baso # (Auto) Absolute Nucleated RBC Nucleated RBC % Sodium Potassium Chloride Carbon Dioxide Anion Gap BUN Creatinine Estimated GFR (MDRD) Glucose Calcium Total Bilirubin AST ALT Alkaline Phosphatase Troponin I Total Protein Albumin Globulin Albumin/Globulin Ratio Lipase Urine Color YELLOW Urine Clarity CLEAR Urine pH 5.5 Ur Specific [place] 1.020 Urine Protein NEGATIVE Urine Glucose (UA) >=1000 H Urine Ketones 15 H Urine Occult Blood TRACE-LYSE Urine Nitrite NEGATIVE Urine Bilirubin NEGATIVE Urine Urobilinogen 0.2 (NORMAL) Ur Leukocyte Esterase NEGATIVE Ur Microscopic Review NOT INDICATED Urine Culture Comments NOT INDICATED - Rads (name of study) cxr Radiology: Prelim report reviewed, EMP read contemporaneously, See rad report (No acute disease. ) PD MEDICAL DECISION MAKING - ED course Complexity details: reviewed results, re-evaluated patient, considered differential, d/w patient, d/w family ED course: 88-year-old male presents to the emergency department with weakness today. Found to be hypotensive. Feels better after IV fluids. Appears dehydrated likely secondary to hyperglycemia. He is an insulin-dependent diabetic but does not check his sugars often. No evidence of DKA. Given insulin here. We will have him continue his medications at home and follow-up with his doctor to adjust his insulin. Patient is well-appearing, nontoxic. Afebrile. No sepsis. Patient and family counseled regarding signs and symptoms for which I believe and urgent re-evaluation would be necessary. Patient with good understanding of and agreement to plan and is comfortable going home at this time This document was made in part using voice recognition software. While efforts are made to proofread this document, sound alike and grammatical errors may occur. Departure - Departure Disposition: 01 Home, Self Care Clinical Impression: Dehydration, Hyperglycemia Condition: Good Instructions: ED Dehydration, ED Hyperglycemia Diabetic Follow-Up: Tran Winchester DO [Primary Care Provider] - Within 3 Days Comments: Please follow-up with Dr. Winchester closely to discuss how to adjust your insulin. Return if you worsen.
[2018-10-17 15:39] LABS: BASOPHILS # (AUTO) 0.1 10^3/uL (0.0-0.1); BASOPHILS % (AUTO) 0.8 %; EOSINOPHILS # (AUTO) 0.3 10^3/uL (0.0-0.7); HGB - HEMOGLOBIN 15.1 g/dL (14.0-18.0); LYMPHOCYTES # (AUTO) 2.3 10^3/uL (1.5-3.5); LYMPHOCYTES % (AUTO) 17.3 %; MEAN CORPUSCULAR HEMOGLOBIN 30.6 pg (27.0-31.0); MEAN CORPUSCULAR VOLUME 92.8 fL (80.0-94.0); MEAN PLATELET VOLUME 10.2 fL (7.4-11.4); MONOCYTES # (AUTO) 1.1 10^3/uL (0.0-1.0); MONOCYTES % (AUTO) 8.4 %; NEUTROPHILS # (AUTO) 9.3 10^3/uL (1.5-6.6); NEUTROPHILS % (AUTO) 71.5 %; PLT - PLATELET COUNT 162 10^3/uL (130-450); RED BLOOD COUNT 4.94 10^6/uL (4.70-6.10); RED CELL DISTRIBUTION WIDTH 13.4 % (12.0-15.0)
--- NOTE | 2018-10-17 15:40 | XRAY Report ---
Reason: Chest Pain Procedure Date: 10/17/2018 Accession Number: [id number] / [id number] Procedure: XR - Chest 1 View X-Ray CPT Code: 51751 FULL RESULT: EXAM: CHEST RADIOGRAPHY EXAM DATE: 10/17/2018 03:30 PM. CLINICAL HISTORY: Chest Pain. COMPARISON: CHEST 2 VIEW PA/LAT 02/01/2016 9:34 PM. TECHNIQUE: 1 view. FINDINGS: Lungs/Pleura: No definite acute infiltrate, consolidation, effusion, or pneumothorax. Mediastinum: Within exam limitations, the cardiomediastinal contour is normal. Upper lobe vessels not distended. Other: Osteopenia, degenerative changes, right rotator cuff arthropathy. IMPRESSION: No acute disease. RADIA
[2018-10-17 16:06] LABS: BILIRUBIN,TOTAL 0.8 mg/dL (0.2-1.0); CALCIUM 8.6 mg/dL (8.5-10.3)
[2018-10-17 16:14] LABS: ALBUMIN 3.3 g/dL (3.2-5.5); ALBUMIN/GLOBULIN RATIO 1.1 (1.0-2.2); TOTAL PROTEIN 6.2 g/dL (6.7-8.2)
[2018-10-17] MEDS ORDERED: SODIUM CHLORIDE 0.9% 1,000 ML IV ONE (16:46)
[2018-10-17] MEDS ORDERED: INSULIN REGULAR HUMAN 100 UNIT/1 ML 10 ML MDV IVP STA (16:46)
[2018-10-17 16:57] LABS: GLUCOSE, URINE (UA) >=1000 mg/dL (NEGATIVE); KETONES,URINE (UA) 15 mg/dL (NEGATIVE); LEUKOCYTE ESTERASE, URINE NEGATIVE (NEGATIVE); NITRITE,URINE NEGATIVE (NEGATIVE); OCCULT BLOOD,URINE TRACE-LYSE (NEGATIVE); PH,URINE 5.5 PH (5.0-7.5); PROTEIN,URINE NEGATIVE (NEGATIVE); UROBILINOGEN,URINE 0.2 (NORMAL) E.U./dL (NORMAL)
[2018-10-17 17:16] LABS: BILIRUBIN,URINE NEGATIVE (NEGATIVE); CLARITY,URINE CLEAR (CLEAR); ICTOTEST,URINE NEGATIVE
[2018-10-17 18:33] VITALS: BP 158/74
== END 2018-10-17 18:33 | disposition home or self-care (01) ==
LOC: EDUNIT# → ED 14:55
DX: E86.0 Dehydration (principal); E11.65 Type 2 diabetes mellitus with hyperglycemia; I10 Essential (primary) hypertension; E78.00 Pure hypercholesterolemia, unspecified; Z79.4 Long term (current) use of insulin; Z87.891 Personal history of nicotine dependence
CPT/HCPCS: 36415; 71045; 80053; 81003; 83690; 84484; 85025; 93005; 96360; 96361; 99284; J1815; 81001; 87086

== ENCOUNTER 2018-10-20 08:00 | Outpatient (CLI) | payer MEDICARE, BC ==
[2018-10-20 15:55] LABS: HB2 TOTAL 16.6 g/dL; HEMOGLOBIN A1C 1.48 g/dL; HEMOGLOBIN A1C % 10.3 % (4.6-6.2)
== END 2018-10-20 23:59 | disposition home or self-care (01) ==
LOC: LAB.R 08:00
PROVIDERS: ATTEND Family Medicine
DX: E11.9 Type 2 diabetes mellitus without complications (principal)
CPT/HCPCS: 83036

== ENCOUNTER 2018-12-05 19:39 | Outpatient (CLI) | payer MEDICARE, BC | END 2018-12-05 19:40 | disposition critical access hospital (66) | LOC: EMS 19:39 | PROVIDERS: ATTEND Surgery | DX: R73.9 Hyperglycemia, unspecified (principal) | CPT/HCPCS: A0425; A0429 ==

== ENCOUNTER 2018-12-05 19:58 | Emergency (ER) | payer MEDICARE, BC ==
--- NOTE | 2018-12-05 20:58 | ED Physician Documentation ---
History of Present Illness - Stated complaint Stated Complaint: DIABETIC ISSUE - Chief complaint Chief Complaint: General - History obtained from History obtained from: Patient, Family - History of Present Illness Timing: Prior to arrival - Additonal information Additional information: Patient is an 88-year-old male with history of hypertension, hyperlipidemia, and type 2 diabetes presenting with his adult son with concern for elevated blood glucose levels. Patient had a home reading earlier this evening of blood glucose over 600, shortly after eating. Patient then took his home insulin dose, which is a flat 32 units each evening, and blood glucose levels have declined appropriately and were around 280s upon arrival.Patient and son report that he remained asymptomatic during this time including no confusion, lightheadedness, chest pain, abdominal pain, nausea, vomiting. Patient has also been in his normal state of health recently with no new fevers, urinary changes, or stool changes. Son reports that patient refuses to take more than daily dose of insulin despite recommendations of family members and physicians. Son reports that he often has elevated blood glucose levels at home and family is struggling to obtain better control of his diabetes. Patient has follow-up appointment scheduled next week to further discuss these issues. Otherwise, no improving or worsening factors noted to his symptoms. Review of Systems Constitutional: denies: Fever Cardiac: denies: Chest pain / pressure GI: denies: Abdominal Pain, Nausea, Vomiting PD PAST MEDICAL HISTORY - Past Medical History Cardiovascular: Hypertension, High cholesterol Respiratory: None Neuro: None Endocrine/Autoimmune: Type 2 diabetes GI: GERD : None HEENT: Glaucoma Psych: None Musculoskeletal: Osteoarthritis, Chronic back pain Derm: None - Past Surgical History Past Surgical History: Yes Ortho: Other HEENT: Cataracts - Present Medications Home Medications: Ambulatory Orders Medication Instructions Recorded Confirmed RX: Sertraline HCl 100 mg PO QDBREAKFAST 02/14/15 12/05/18 RX: Rosuvastatin Calcium [Crestor] 5 mg PO DAILY PM 09/27/16 12/05/18 RX: Timolol Maleate [Timoptic-Xe] 1 drops EACHEYE DAILY 10/28/17 12/05/18 Insulin Glargine,Hum.rec.anlog 32 units SUBQ DAILYWM 12/05/18 12/05/18 [Bony Vilchis] - Allergies Allergies/Adverse Reactions: Allergies Allergy/AdvReac Type Severity Reaction Status Date / Time Penicillins Allergy Mild Rash Verified 12/05/18 20:02 celecoxib [From Celebrex] Allergy Hives Verified 12/05/18 20:02 acetaminophen [From Tylenol] AdvReac Unknown Verified 12/05/18 20:02 - Social History Does the pt smoke?: Yes Smoking Status: Current every day smoker Does the pt drink ETOH?: No Does the pt have substance abuse?: No - Immunizations Immunizations are current?: Yes - POLST Patient has POLST: No POLST Status: Full Code PD ED PE NORMAL - General General: Alert and oriented X 3, No acute distress, Well developed/nourished - HEENT HEENT: Atraumatic, Moist mucous membranes - Cardiac Cardiac: RRR, No murmur - Respiratory Respiratory: No respiratory distress, Clear bilaterally - Abdomen Abdomen: Normal bowel sounds, Soft, Non tender, Non distended - Derm Derm: Normal color, Warm and dry, No rash - Extremities Extremities: No edema, No calf tenderness / cord - Neuro Neuro: Alert and oriented X 3 (No gross deficits noted), No motor deficit, No sensory deficit - Psych Psych: Normal mood, Normal affect Results - Vitals Vitals: Vital Signs - 24 hr 12/05/18 12/05/18 12/05/18 19:53 20:04 21:05 Temperature 36.3 C L Heart Rate 64 63 64 Respiratory 16 16 Rate Blood Pressure 139/67 H 124/65 O2 Saturation 97 96 Oxygen O2 Source [With Activity] Room air O2 Source [Without Activity] Room air O2 Source Room air PD MEDICAL DECISION MAKING - ED course Complexity details: reviewed old records, reviewed results, considered differential, d/w patient, d/w family ED course: Patient is a known diabetic who has declined recommended insulin regimen. Patient's only insulin is at night and is at 32 units. Oftentimes, patient has abnormally high levels of blood glucose during the daytime. Patient reports that he has declined suggested new regimens because he is worried about hypoglycemia. Today, patient was completely asymptomatic, but patient and son were worried about elevated reading. Patient did not take his insulin and upon arrival to the ED, glucose declined appropriately. Patient remains asymptomatic here and otherwise has benign exam. At this time, do not feel he necessarily requires an emergent or invasive work-up. Had extensive discussions regarding use of insulin and other possible regimens, as well as need for discussion with his primary care physician. Patient already has appropriate follow-up scheduled. Son able to provide ride home. Otherwise, both comfortable with discharge plan. Departure - Departure Disposition: 01 Home, Self Care Clinical Impression: Hyperglycemia Condition: Good Instructions: ED Hyperglycemia Diabetic Follow-Up: Tran Winchester DO [Primary Care Provider] - Within 3 Days Comments: Please continue home medications as previously instructed. Recommend discussing changing your insulin regimen with your doctor to avoid extremely high or extremely low levels of blood glucose. If you experience abnormally high or low levels of low glucose or other symptoms, please return to the ED immediately. Otherwise, please follow-up with your primary care physician as scheduled or in the next 2 to 3 days. Discharge Date/Time: 12/05/18 21:05
[2018-12-05 21:05] VITALS: BP 124/65
== END 2018-12-05 21:05 | disposition home or self-care (01) ==
LOC: EDUNIT# → ED 19:58
DX: E11.65 Type 2 diabetes mellitus with hyperglycemia (principal); Z79.4 Long term (current) use of insulin; I10 Essential (primary) hypertension; E78.5 Hyperlipidemia, unspecified; F17.200 Nicotine dependence, unspecified, uncomplicated
CPT/HCPCS: 99283

== ENCOUNTER 2018-12-06 20:29 | Outpatient (CLI) | payer MEDICARE, BC | END 2018-12-06 20:30 | disposition critical access hospital (66) | LOC: EMS 20:29 | PROVIDERS: ATTEND Surgery | DX: R41.82 Altered mental status, unspecified (principal); S09.90XA Unspecified injury of head, initial encounter; W18.30XA Fall on same level, unspecified, initial encounter; Z91.81 History of falling; Y92.009 Unspecified place in unspecified non-institutional (private) residence as the place of occurrence of the external cause | CPT/HCPCS: A0425; A0429 ==

== ENCOUNTER 2018-12-06 20:43 | Emergency (ER) | payer MEDICARE, BC ==
--- NOTE | 2018-12-06 21:51 | ED Physician Documentation ---
History of Present Illness - Stated complaint Stated Complaint: GLF/ CONFUSION - Chief complaint Chief Complaint: Neuro - History obtained from History obtained from: Patient, Family - Additonal information Additional information: Patient is an 88-year-old male with history of cardiac disease, as well as diabetes, noncompliant with his suggested insulin regimen, presenting with his family after mechanical fall earlier today at approximately 9 AM. Of note, patient was seen in this ED by this physician yesterday for hyperglycemia. Unfortunately, patient suffers from chronic hyperglycemia as he does not want to follow physician's instructions on use of insulin. Patient reports that he is afraid of hypoglycemic episodes. Currently, he uses 32 units of insulin only in the evenings after dinner. No insulin taken today. Patient and report that patient was in the bathroom and had mechanical fall and struck his head on the right on the bathtub without loss of consciousness. Patient denies vision changes, nausea, vomiting, headache, abrasions, lacerations, or bleeding. Patient does report a stiff neck. Throughout the day, patient was more sleepy and slightly disoriented. Patient tolerated oral intake at dinner without issue. No other improving or worsening factors noted. No known anticoagulation. Review of Systems Eyes: denies: Loss of vision GI: denies: Abdominal Pain, Nausea, Vomiting PD PAST MEDICAL HISTORY - Past Medical History Past Medical History: Yes Cardiovascular: Hypertension, High cholesterol Respiratory: None Neuro: None Endocrine/Autoimmune: Type 2 diabetes GI: GERD : None HEENT: Glaucoma Psych: None Musculoskeletal: Osteoarthritis, Chronic back pain Derm: None - Past Surgical History Past Surgical History: Yes Ortho: Other HEENT: Cataracts - Present Medications Home Medications: Ambulatory Orders Medication Instructions Recorded Confirmed RX: Sertraline HCl 100 mg PO QDBREAKFAST 02/14/15 12/06/18 RX: Rosuvastatin Calcium [Crestor] 5 mg PO DAILY PM 09/27/16 12/06/18 RX: Timolol Maleate [Timoptic-Xe] 1 drops EACHEYE DAILY 10/28/17 12/06/18 Insulin Glargine,Hum.rec.anlog 32 units SUBQ DAILYWM 12/05/18 12/06/18 [Bony Vilchis] - Allergies Allergies/Adverse Reactions: Allergies Allergy/AdvReac Type Severity Reaction Status Date / Time Penicillins Allergy Mild Rash Verified 12/06/18 20:50 celecoxib [From Celebrex] Allergy Hives Verified 12/06/18 20:50 acetaminophen [From Tylenol] AdvReac Unknown Verified 12/06/18 20:50 - Social History Does the pt smoke?: Yes Smoking Status: Current every day smoker Does the pt drink ETOH?: No Does the pt have substance abuse?: No - Immunizations Immunizations are current?: Yes - POLST Patient has POLST: No POLST Status: Full Code PD ED PE NORMAL - Vitals Vital signs reviewed: Yes - General General: Alert and oriented X 3, No acute distress, Well developed/nourished - HEENT HEENT: Atraumatic, PERRL (No nystagmus. Gross visual acuity intact.), EOMI, Moist mucous membranes. No: Dentition benign (Poor dentition throughout, chronic) - Neck Neck: No bony TTP - Cardiac Cardiac: RRR, No murmur - Respiratory Respiratory: No respiratory distress, Clear bilaterally - Abdomen Abdomen: Normal bowel sounds, Soft, Non tender, Non distended - Derm Derm: Normal color, Warm and dry, Other (Chronic skin changes with scabbing present diffusely over all extremitiesNo new abrasions, lacerations, areas of ecchymosis or contusion.) - Neuro Neuro: Alert and oriented X 3, No motor deficit, No sensory deficit - Psych Psych: Normal mood, Normal affect Results - Vitals Vitals: Vital Signs - 24 hr 12/06/18 12/06/18 12/06/18 20:44 21:07 23:15 Temperature 37.3 C 36.7 C Heart Rate 94 91 85 Respiratory 20 16 16 Rate Blood Pressure 115/46 L 116/46 L 128/71 O2 Saturation 91 L 99 95 12/07/18 12/07/18 00:23 01:42 Temperature Heart Rate 86 81 Respiratory 16 13 Rate Blood Pressure 153/76 H 136/93 H O2 Saturation 93 98 Oxygen O2 Source [] Room air O2 Source [] Room air O2 Source Room air - EKG (time done) 2102 Rate: Rate (enter#) (88) Ischemia: Non specific changes Other comments: Other comments (Wavy baseline with artifact present) - Labs Labs: Laboratory Tests 12/06/18 12/06/18 12/06/18 22:00 22:00 22:00 WBC 10.3 RBC 4.76 Hgb 14.4 Hct 43.7 MCV 91.8 MCH 30.3 MCHC 33.0 RDW 13.8 Plt Count 156 MPV 10.6 Neut # (Auto) 7.2 H Lymph # (Auto) 2.1 [place] # (Auto) 0.8 Eos # (Auto) 0.1 Baso # (Auto) 0.1 Absolute Nucleated RBC 0.00 Nucleated RBC % 0.0 Sodium 133 L Potassium 4.7 Chloride 96 L Carbon Dioxide 26 Anion Gap 11.0 BUN 30 H Creatinine 1.8 H Estimated GFR (MDRD) 36 L Glucose 289 H Calcium 8.5 Total Bilirubin 0.6 AST 23 ALT 16 Alkaline Phosphatase 72 Troponin I 0.05 Total Protein 6.0 L Albumin 3.2 Globulin 2.8 Albumin/Globulin Ratio 1.1 Lipase 17 L Urine Color Urine Clarity Urine pH Ur Specific [place] Urine Protein Urine Glucose (UA) Urine Ketones Urine Occult Blood Urine Nitrite Urine Bilirubin Urine Urobilinogen Ur Leukocyte Esterase Ur Microscopic Review Urine Culture Comments 12/06/18 23:37 WBC RBC Hgb Hct MCV MCH MCHC RDW Plt Count MPV Neut # (Auto) Lymph # (Auto) [place] # (Auto) Eos # (Auto) Baso # (Auto) Absolute Nucleated RBC Nucleated RBC % Sodium Potassium Chloride Carbon Dioxide Anion Gap BUN Creatinine Estimated GFR (MDRD) Glucose Calcium Total Bilirubin AST ALT Alkaline Phosphatase Troponin I Total Protein Albumin Globulin Albumin/Globulin Ratio Lipase Urine Color YELLOW Urine Clarity CLEAR Urine pH 6.0 Ur Specific [place] 1.020 Urine Protein TRACE Urine Glucose (UA) >=1000 H Urine Ketones 15 H Urine Occult Blood TRACE-LYSE Urine Nitrite NEGATIVE Urine Bilirubin NEGATIVE Urine Urobilinogen 0.2 (NORMAL) Ur Leukocyte Esterase NEGATIVE Ur Microscopic Review NOT INDICATED Urine Culture Comments NOT INDICATED PD MEDICAL DECISION MAKING - ED course Complexity details: reviewed results, re-evaluated patient, considered differential, d/w patient, d/w family ED course: Patient's physical exam is similar to yesterday and otherwise appears at baseline to this physician and to his family. No obvious signs of trauma, new neurological deficit, or systemic infection. However, given report of mechanical fall or injury, plan to obtain CT imaging of face, head, neck. All imaging returned negative for acute findings. Patient denied symptoms that raise high concerns for other medical reasons as his source of falling, but obtain EKG, screening lab work, and urinalysis. All returned relatively unremarkable except for those reflective of his known underlying disease, such as his elevated creatinine which is similar to previous measurements. His blood glucose was also elevated and patient received small dose of insulin by IV and then his home dose of insulin as he normally uses, which caused decrease in glucose. Do not find evidence that would indicate stroke, other intracranial injury, ACS, current infarction, unstable angina, PE, or other acute pathology at this time. Again discussed use of insulin, as well as close follow-up with primary care physician and supportive cares. Also discussed strict return precautions with patient and his family. All voiced understanding and are comfortable with discharge plan. Departure - Departure Disposition: 01 Home, Self Care Clinical Impression: Hyperglycemia, Fall Condition: Good Follow-Up: Tran Winchester DO [Primary Care Provider] - Within 3 Days Comments: Please continue all home medications as previously instructed. Recommend follow-up with your primary care provider as scheduled or in the next 2 to 3 days. Recommend continued consideration of insulin regimen so that your blood sugars are better controlled. Please return to ED sooner if experience recurrence of symptoms or other concerns. Discharge Date/Time: 12/07/18 01:59
[2018-12-06 22:22] LABS: BASOPHILS # (AUTO) 0.1 10^3/uL (0.0-0.1); BASOPHILS % (AUTO) 1.1 %; EOSINOPHILS # (AUTO) 0.1 10^3/uL (0.0-0.7); EOSINOPHILS % (AUTO) 1.1 %; HGB - HEMOGLOBIN 14.4 g/dL (14.0-18.0); LYMPHOCYTES # (AUTO) 2.1 10^3/uL (1.5-3.5); LYMPHOCYTES % (AUTO) 20.8 %; MEAN CORPUSCULAR HEMOGLOBIN 30.3 pg (27.0-31.0); MEAN CORPUSCULAR VOLUME 91.8 fL (80.0-94.0); MEAN PLATELET VOLUME 10.6 fL (7.4-11.4); MONOCYTES # (AUTO) 0.8 10^3/uL (0.0-1.0); MONOCYTES % (AUTO) 7.5 %; NEUTROPHILS # (AUTO) 7.2 10^3/uL (1.5-6.6); NEUTROPHILS % (AUTO) 69.5 %; PLT - PLATELET COUNT 156 10^3/uL (130-450); RED BLOOD COUNT 4.76 10^6/uL (4.70-6.10); RED CELL DISTRIBUTION WIDTH 13.8 % (12.0-15.0); WHITE BLOOD COUNT 10.3 x10^3/uL (4.8-10.8)
[2018-12-06 22:34] LABS: ALBUMIN 3.2 g/dL (3.2-5.5); ALBUMIN/GLOBULIN RATIO 1.1 (1.0-2.2); BILIRUBIN,TOTAL 0.6 mg/dL (0.2-1.0); CALCIUM 8.5 mg/dL (8.5-10.3); CREATININE 1.8 mg/dL (0.6-1.2)
[2018-12-06] MEDS ORDERED: SODIUM CHLORIDE 0.9% 1,000 ML IV ONE (22:41)
[2018-12-06] MEDS ORDERED: INSULIN REGULAR HUMAN 100 UNIT/1 ML 10 ML MDV IVP STA (22:41)
--- NOTE | 2018-12-06 22:44 | CT Report ---
Reason: fall and hit head on right cheek Procedure Date: 12/06/2018 Accession Number: [id number] / [id number] Procedure: CT - HEAD WO CPT Code: FULL RESULT: EXAM: CT HEAD EXAM DATE: 12/06/2018 10:20 PM. CLINICAL HISTORY: Fall and hit head on right cheek. Disoriented. Bruising. COMPARISON: HEAD W/O 09/14/2017 7:19 PM. TECHNIQUE: Multiaxial CT images were obtained from the foramen magnum to the vertex. Reformats: Sagittal and coronal. IV contrast: None. In accordance with CT protocol optimization, one or more of the following dose reduction techniques were utilized for this exam: automated exposure control, adjustment of mA and/or KV based on patient size, or use of iterative reconstructive technique. FINDINGS: Parenchyma: Evidence of diffuse parenchymal volume loss and low attenuation in the periventricular white matter, likely age-related changes. No acute hemorrhage, mass-effect, midline shift. Decker-white differentiation appears maintained. Extraaxial Spaces: No acute extra-axial collection. Ventricles: Appropriate in size and configuration, stable. Sinuses and Orbits: Imaged paranasal sinuses, orbits, and mastoids show no significant abnormality. Bones: No depressed skull fracture. Other: None. IMPRESSION: No acute intracranial abnormality identified. No significant change. RADIA
--- NOTE | 2018-12-06 22:48 | CT Report ---
Reason: fall and hit head on right cheek Procedure Date: 12/06/2018 Accession Number: [id number] / [id number] Procedure: CT - CERVICAL SPINE WO CPT Code: FULL RESULT: EXAM: CT CERVICAL SPINE WITHOUT CONTRAST DATE: 12/06/2018 10:22 PM. HISTORY: Fall and hit head on right cheek. Bruising. COMPARISONS: CERVICAL SPINE W/O 05/19/2017 4:02 PM. TECHNIQUE: Thin-section axial images were acquired of the cervical spine without contrast. Post-processing: Coronal and sagittal reformats. Other: None. In accordance with CT protocol optimization, one or more of the following dose reduction techniques were utilized for this exam: automated exposure control, adjustment of mA and/or KV based on patient size, or use of iterative reconstructive technique. FINDINGS: Alignment: Stable alignment. No new spondylolisthesis or scoliosis. Bones: Vertebral body heights appear maintained. No acute fracture identified. Stable appearing chronic changes. Interspace Levels/Facets: Multilevel degenerative disk disease and facet arthropathy, most notably at C1-C2, C5-C6, C6-C7, C7-T1 levels. Musculature: No fatty atrophy. Other: No prevertebral soft tissue swelling. Atherosclerotic vascular calcification. The lung apices are clear. IMPRESSION: No acute cervical spine fracture or spondylolisthesis identified. No significant change since the prior study. RADIA
--- NOTE | 2018-12-06 22:53 | CT Report ---
Reason: fall and hit head on right cheek Procedure Date: 12/06/2018 Accession Number: [id number] / [id number] Procedure: CT - MAXILLOFACIAL WO CPT Code: FULL RESULT: EXAM: CT MAXILLOFACIAL WITHOUT CONTRAST EXAM DATE: 12/06/2018 10:23 PM. CLINICAL HISTORY: Fall and hit head on right cheek. Bruising. COMPARISONS: FACIAL BONES W/O 09/14/2017 7:19 PM. TECHNIQUE: Thin-section axial images were acquired of the face without contrast. Post-processing: Coronal and sagittal reformats. Other: None. In accordance with CT protocol optimization, one or more of the following dose reduction techniques were utilized for this exam: automated exposure control, adjustment of mA and/or KV based on patient size, or use of iterative reconstructive technique. FINDINGS: Soft Tissue: Small amount of right-sided facial soft tissue swelling. No discrete collection. Orbits: Symmetric and unremarkable. Bones: No acute fracture or focal osseous destruction identified. Temporomandibular Joints: The temporomandibular joints are symmetric and normally located. Sinuses: Small amount of mucosal thickening within the ethmoids and maxillary sinuses otherwise clear. Other: Atherosclerotic vascular calcifications. IMPRESSION: No acute facial fracture or TMJ dislocation identified. RADIA
[2018-12-06] MEDS ORDERED: INSULIN GLARGINE 300 UNIT/3 ML PEN SUBQ STA (23:55)
[2018-12-06 23:58] LABS: BILIRUBIN,URINE NEGATIVE (NEGATIVE); GLUCOSE, URINE (UA) >=1000 mg/dL (NEGATIVE); KETONES,URINE (UA) 15 mg/dL (NEGATIVE); LEUKOCYTE ESTERASE, URINE NEGATIVE (NEGATIVE); NITRITE,URINE NEGATIVE (NEGATIVE); OCCULT BLOOD,URINE TRACE-LYSE (NEGATIVE); PROTEIN,URINE TRACE mg/dL (NEGATIVE); UROBILINOGEN,URINE 0.2 (NORMAL) E.U./dL (NORMAL)
[2018-12-07 00:05] LABS: CLARITY,URINE CLEAR (CLEAR)
[2018-12-07] MEDS ORDERED: SODIUM CHLORIDE 0.9% 1,000 ML IV ONE (00:07)
[2018-12-07 01:43] VITALS: BP 136/93
== END 2018-12-07 01:59 | disposition home or self-care (01) ==
LOC: EDUNIT# → ED 20:43
DX: S09.90XA Unspecified injury of head, initial encounter (principal); W01.198A Fall on same level from slipping, tripping and stumbling with subsequent striking against other object, initial encounter; Y92.002 Bathroom of unspecified non-institutional (private) residence as the place of occurrence of the external cause; E11.65 Type 2 diabetes mellitus with hyperglycemia; Z79.4 Long term (current) use of insulin; Z91.14 Patient's other noncompliance with medication regimen; I10 Essential (primary) hypertension; I25.10 Atherosclerotic heart disease of native coronary artery without angina pectoris; F17.200 Nicotine dependence, unspecified, uncomplicated
CPT/HCPCS: 36415; 70450; 70486; 72125; 80053; 81003; 83690; 84484; 85025; 93005; 96360; 96361; 99283; 99284; J1815; 81001; 87086

== ENCOUNTER 2019-01-18 08:00 | Outpatient (CLI) | payer MEDICARE, BC ==
[2019-01-18 14:38] LABS: ALBUMIN 3.5 g/dL (3.2-5.5); ALBUMIN/GLOBULIN RATIO 1.3 (1.0-2.2); BILIRUBIN,TOTAL 0.5 mg/dL (0.2-1.0); CALCIUM 8.9 mg/dL (8.5-10.3); CREATININE 1.4 mg/dL (0.6-1.2); TOTAL PROTEIN 6.3 g/dL (6.7-8.2)
[2019-01-18 14:39] LABS: HB2 TOTAL 16.4 g/dL; HEMOGLOBIN A1C 1.14 g/dL; HEMOGLOBIN A1C % 8.5 % (4.6-6.2)
== END 2019-01-18 08:01 | disposition home or self-care (01) ==
LOC: LAB.WCP 08:00
PROVIDERS: ATTEND Family Medicine
DX: I10 Essential (primary) hypertension (principal)
CPT/HCPCS: 36415; 80053; 83036

== ENCOUNTER 2019-02-02 | Outpatient (CLI) | payer MEDICARE, BC | END 2019-02-02 14:37 | disposition home or self-care (01) | DX: Z51.5 Encounter for palliative care (principal); E11.22 Type 2 diabetes mellitus with diabetic chronic kidney disease; N18.9 Chronic kidney disease, unspecified; E11.40 Type 2 diabetes mellitus with diabetic neuropathy, unspecified; R53.1 Weakness; L03.031 Cellulitis of right toe; R53.83 Other fatigue; R26.89 Other abnormalities of gait and mobility; L29.9 Pruritus, unspecified; I12.9 Hypertensive chronic kidney disease with stage 1 through stage 4 chronic kidney disease, or unspecified chronic kidney disease; Z79.4 Long term (current) use of insulin; Z91.81 History of falling; Z87.891 Personal history of nicotine dependence; Z66 Do not resuscitate; Z91.14 Patient's other noncompliance with medication regimen | CPT/HCPCS: 99345 ==

== ENCOUNTER 2019-02-27 11:20 | Outpatient (CLI) | payer MEDICARE, BC | END 2019-02-27 11:21 | disposition EMS.NT | LOC: EMS 11:20 | PROVIDERS: ATTEND Surgery | DX: Z03.89 Encounter for observation for other suspected diseases and conditions ruled out (principal) ==

== ENCOUNTER 2019-05-10 08:00 | Outpatient (CLI) | payer MEDICARE, BC ==
[2019-05-10 12:52] LABS: CALCIUM 8.7 mg/dL (8.5-10.3); CREATININE 1.4 mg/dL (0.6-1.2)
[2019-05-10 12:54] LABS: HB2 TOTAL 15.5 g/dL; HEMOGLOBIN A1C 1.04 g/dL; HEMOGLOBIN A1C % 8.3 % (4.6-6.2)
== END 2019-05-10 08:01 | disposition home or self-care (01) ==
LOC: LAB.WCP 08:00
PROVIDERS: ATTEND Family Medicine
DX: E11.9 Type 2 diabetes mellitus without complications (principal)
CPT/HCPCS: 36415; 80048; 83036